=== PATIENT | male | born 1970 | race Hispanic/Latino ===

== ENCOUNTER 2017-09-11 19:15 | Observation (INO) | payer OTHER, MEDICARE ==
[~2017-09-11] VITALS: Ht 182.9 cm; Wt 89.8 kg
[2017-09-11 20:11] LABS: ABSOLUTE BASOPHIL COUNT 0 /CUMM (0.0-0.2); ABSOLUTE EOSINOPHIL COUNT 0.1 /CUMM (0.0-0.7); ABSOLUTE GRANULOCYTE CT 4.8 /CUMM (1.4-6.5); ABSOLUTE LYMPH COUNT 1.8 /CUMM (1.2-3.4); ABSOLUTE MONOCYTE COUNT 0.6 /CUMM (0.10-0.60); BASOPHIL % 0.1 % (0.0-2.0); EOSINOPHIL % 1.9 % (0-5); GRANULOCYTE % 65.1 % (42.2-75.2); HEMATOCRIT 37.8 % (42-52); MEAN CORPUSCULAR HGB CONC 34.6 G/DL (33.0-37.0); MEAN CORPUSCULAR VOLUME 86.8 FL (80.0-94.0); MEAN PLATELET VOLUME 7.4 FL (7.4-10.4); PLATELET COUNT 239 /CUMM (130-400); RBC DISTRIBUTION WIDTH 13.2 % (11.5-14.5); RED BLOOD CELL CT 4.35 /CUMM (4.70-6.10); WHITE BLOOD CELL COUNT 7.3 /CUMM (4.8-10.8)
--- NOTE | 2017-09-11 20:15 | ED GI/GU/ABDOMINAL COMPLAINT ---
History of Present Illness General Chief Complaint: Chest Pain Stated Complaint: R UPPER RIB PAIN RADIATING TO BACK Source: patient, family, old records Exam Limitations: no limitations Vital Signs & Intake/Output Vital Signs & Intake/Output Vital Signs Date Time Temp Pulse Resp B/P B/P Pulse O2 O2 Flow FiO2 Mean Ox Delivery Rate 09/11 2156 99.7 62 20 118/63 96 Room Air 09/11 1945 Room Air 09/11 1938 98.5 97 20 121/77 98 Room Air Allergies Coded Allergies: NSAIDS (Non-Steroidal Anti-Inflamma (Intermediate, SWELLING EYE 09/11/17) ciprofloxacin (From CIPRO) (Intermediate, HIVES 09/11/17) Reconcile Medications Clonazepam 1 MG TABLET 1 TAB PO QPM SLEEP/ANXIETY (Reported) Desvenlafaxine Succinate (Pristiq ER) 100 MG TAB.ER.24H 1 TAB PO QPM MENTAL HEALTH (Reported) Morphine Sulfate (Ms Contin) 15 MG TABLET.ER 1 TAB PO BID PAIN (Reported) Oxycodone HCl 10 MG TABLET 1 TAB PO Q4H PAIN (Reported) Trazodone HCl 100 MG TABLET 1 TAB PO QPM SLEEP (Reported) Triage Note: PT HERE WITH C/O RIGHT SIDE CHEST PAIN UNDER "RIB CAGE". PT REPORTS IT HAPPENED ONCE YESTERDAY AND THEN TODAY ITS BEEN ON AND OFF ALL DAY. PT REPORTS NAUSEA AND DRY HEAVES BUT DENIES VONITING OR SOB. PT ALSO REPORTS NOW HAVING A HEADACHE. Triage Nurses Notes Reviewed? yes Onset: yesterday Duration: day(s):, continues in ED, waxing and waning Timing: recent history Quality/Severity: moderate, sharpness Location: right upper quadrant Radiation: no radiation Activities at Onset: rest Prior Abdominal Problems: none Past Sexual History: Unobtainable at this time Modifying Factors: Worsens With: palpation. Associated Symptoms: abdominal pain, loss of appetite, nausea/vomiting HPI: 1 day prior to admission patient complains of episodic waxing and waning right upper quadrant pain moderate to severe nonradiating associated with nausea. He denies fever chills vomiting diarrhea chest pain cough shortness of breath headache dysuria rash bleeding. Past History Travel History Traveled to [place] past 21 day No Medical History Any Pertinent Medical History? see below for history Psychiatric: anxiety, depression, PTSD CHRONIC PAIN Blood Disorders: NONE Surgical History Surgical History: hernia repair-inguinal Psychosocial History What is your primary language Mauritian Tobacco Use: Current Daily Use Daily Tobacco Use Amount/Type: => 5 Cigarettes daily ETOH Use: denies use Illicit Drug Use: denies illicit drug use Family History Hx Contributory? No Review of Systems Review of Systems Constitutional: Reports: no symptoms. EENTM: Reports: no symptoms. Respiratory: Reports: no symptoms. Cardiovascular: Reports: no symptoms. GI: Reports: see HPI, abdominal pain, nausea. Genitourinary: Reports: no symptoms. Musculoskeletal: Reports: no symptoms. Skin: Reports: no symptoms. Neurological/Psychological: Reports: no symptoms. Hematologic/Endocrine: Reports: no symptoms. Immunologic/Allergic: Reports: no symptoms. All Other Systems: Reviewed and Negative Physical Exam Physical Exam General Appearance: well developed/nourished, alert, awake, anxious, moderate distress, obese Head: atraumatic, normal appearance Eyes: Bilateral: normal appearance, PERRL, EOMI, normal inspection. Ears, Nose, Throat, Mouth: hearing grossly normal, moist mucous membrane Neck: normal inspection, supple, full range of motion, normal alignment Respiratory: normal breath sounds, chest non-tender, no respiratory distress, quiet respiration, lungs clear Cardiovascular: regular rate/rhythm, normal peripheral pulses, norml femoral pulses equa Peripheral Pulses: 4+ carotid (R), 4+ carotid (L) Gastrointestinal: normal bowel sounds, soft, no organomegaly, guarding, tenderness (Positive Yates's) Male Genitals: normal genitalia Back: normal inspection, normal range of motion, no vertebral tenderness Extremities: normal range of motion, no ligament instability Neurologic/Psych: no motor/sensory deficits, awake, alert, oriented x 3, normal gait, normal mood/affect, operator supply II-XII nml as tested Skin: intact, normal color, warm/dry Core Measures ACS in differential dx? No Sepsis Present: No Sepsis Focused Exam Completed? No Progress Differential Diagnosis: appendicitis, biliary colic, gastritis, pancreatitis Plan of Care: Orders Procedure Date/time Status Regular Diet 09/12 B Active Patient Data 09/11 2301 Active OXYGEN SETUP (GEN) 09/11 2209 Active Saline Lock 09/[address] in observation 09/11 2209 Active Vital Signs 09/11 2209 Active Activity/Ambulation 09/11 2209 Active Code Status 09/11 2209 Active BLOOD CULTURE 09/11 2204 Active URINALYSIS 09/11 1953 Complete TROPONIN LEVEL 09/11 1953 Complete LIPASE 09/11 1953 Complete COMPREHENSIVE METABOLIC PANEL 09/11 1953 Complete CBC WITHOUT DIFFERENTIAL 09/11 1953 Complete EKG 09/11 1916 Active Current Medications Sig/Fazal Start time Last Medication Dose Stop Time Status Admin Diphenhydramine HCl 25 MG ONCE ONE 09/11 2314 UNVr (Benadryl) 09/11 231 Laboratory Tests 09/11/17 2005: Urine Color YEL, Urine Clarity CLEAR, Urine pH 6.0, Ur Specific [place] 1.025, Urine Protein NEG, Urine Ketones NEG, Urine Nitrite NEG, Urine Bilirubin NEG, Urine Urobilinogen 1.0, Ur Leukocyte Esterase NEG, Ur Microscopic EXAM NOT REQUIRED, Urine Hemoglobin NEG, Urine Glucose NEG 09/11/171999: Anion Gap 10, Estimated GFR > 60, BUN/Creatinine Ratio 12.0, Glucose 101 H, Calcium 8.9, Total Bilirubin 0.8, AST 126 H, ALT 93 H, Alkaline Phosphatase 109, Troponin I < 0.01, Total Protein 6.7, Albumin 4.0, Globulin 2.7, Albumin/ Globulin Ratio 1.5, Lipase 28, CBC w Diff NO MAN DIFF REQ, RBC 4.35 L, MCV 86.8 , MCH 30.0, MCHC 34.6, RDW 13.2, MPV 7.4, Gran % 65.1, Lymphocytes % 24.1, Monocytes % 8.8, Eosinophils % 1.9, Basophils % 0.1, Absolute Granulocytes 4.8, Absolute Lymphocytes 1.8, Absolute Monocytes 0.6, Absolute Eosinophils 0.1, Absolute Basophils 0 Microbiology 09/11 2249 BLOOD: Blood Culture - RECD 09/11 2229 BLOOD: Blood Culture - RECD Diagnostic Imaging: Viewed by Me: CT Scan. Discussed w/RAD: CT Scan. Radiology Impression: There is some gallbladder wall thickening. There is no opaque gallstone or biliary dilation. Possibilities include cholesterolosis or early cholecystitis. Some correlation necessary Initial ED EKG: normal axis, normal intervals, normal p-waves, normal QRS complex, normal sinus rhythm, no ST T wave changes Rhythm Strip: normal sinus rhythm Departure Departure Disposition: STILL A PATIENT Condition: Stable Clinical Impression Primary Impression: Cholecystitis with cholelithiasis Referrals: Laureano Brooks MD (PCP/Family) Departure Forms: Customer Survey General Discharge Information Admission Note Spoke With: Sharda Walden MD Documentation of Exam: Documentation of any treatments & extenuating circumstances including Concerns Regarding Discharge (functional status, medication knowledge or non-compliance, living conditions, etc.) that warrant an admission rather than observation: IV antibiotics IV analgesia IV fluids medication adjustment surgical evaluation continuing care discharge planning
--- NOTE | 2017-09-11 21:59 | CT SCAN REPORT ---
EXAMINATION: CT ABDOMEN AND PELVIS WITH CONTRAST CLINICAL INFORMATION: Biliary colic. Right upper quadrant tenderness and pain. Intermittent symptoms with nausea COMPARISON: None TECHNIQUE: Multidetector volumetric imaging was performed of the abdomen and pelvis following IV administration of 95 mL of Optiray 320 intravenous contrast. Sagittal and coronal reformatted images were obtained on the technologist's workstation. DLP: 389 mGy-cm FINDINGS: LUNG BASES: There is a moderate hiatal hernia. Motion artifact limits assessment of the lung bases. LIVER, GALLBLADDER, AND BILIARY TREE: No suspicious abnormality of the liver. No intrahepatic biliary dilation. There is some gallbladder wall thickening. The gallbladder is mildly distended. There are some tiny hyperdensities associated with the gallbladder wall. There is no dilation of the common duct. There may be a small diverticulum along the medial aspect of the second portion the duodenum. PANCREAS: No suspicious abnormality. SPLEEN: Normal ADRENAL GLANDS: Within normal limits KIDNEYS AND URETERS: There is no dilation of the urinary collecting system. No suspicious renal mass. No opaque renal calculus. BLADDER: The bladder is nearly empty. No definite abnormality GASTROINTESTINAL TRACT: No localized colonic wall thickening. No CT evidence of appendicitis. No small bowel dilation. There is a moderate hiatal hernia. The stomach contains a moderate amount of retained material. ABDOMINAL WALL: No significant hernia is appreciated. LYMPH NODES: There are no enlarged abdominal or pelvic lymph nodes. There is no free intraperitoneal fluid. VASCULAR: There is no abdominal aortic aneurysm. The portal vein enhances. PELVIC VISCERA: No suspicious abnormality OSSEOUS STRUCTURES: Artifact related to lumbosacral instrumentation. IMPRESSION: There is some gallbladder wall thickening. There is no opaque gallstone or biliary dilation. Possibilities include cholesterolosis or early cholecystitis. Some correlation necessary
[2017-09-11] MEDS ORDERED: OXYCODONE HCL10 M2 PO (23:02)
[2017-09-11] MEDS ORDERED: PRISTIQ ER100 MG PO (23:03)
[2017-09-11] MEDS ORDERED: CLONAZEPAM1 M2 PO (23:03)
[2017-09-11] MEDS ORDERED: MS CONTIN15 M3 PO (23:03)
[2017-09-11] MEDS ORDERED: TRAZODONE HCL100 M1 PO (23:04)
[2017-09-11] MEDS ORDERED: NEXIUM20 M1 PO (23:05)
[2017-09-11] MEDS ORDERED: SEROQUEL50 M1 PO (23:05)
[2017-09-11] MEDS ORDERED: MINIPRESS5 MG PO (23:05)
--- NOTE | 2017-09-11 23:59 | History & Physical ---
Shabana Ryan MD 09/11/17 5026: General Information and HPI MD Statement: I have seen and personally examined VARUN FAY and documented this H&P. The patient is a 47 year old M who presented with a patient stated chief complaint of RUQ tenderness and nausea Source of Information: patient Exam Limitations: no limitations History of Present Illness: This is a 47-year-old male with a past medical history of anxiety, depression, PTSD, chronic pain, left inguinal and hiatal hernias status post repair in summer that comes in for one day history of right upper quadrant tenderness and pain radiating to the back. The patient states that he was standing up talking to somebody yesterday when all of a sudden he had sharp squeezing pain in the right upper quadrant. The patient has continued to be on and off since then with attacks lasting about 20-30 minutes. He states that the worst pain has been 10/10. The patient has never had pain like this before. He has had abdominal surgery back in 2016, has no history of gallstones. The patient also complains of nausea and dry heaving, no vomiting. He also had one bout of chills this morning and complained of a severe headache prior to arrival at the [place] [facility] The patient has had a normal diet recently, no travel, no sick contacts. Pain is worse on eating. He denies any diarrhea or constipation. He also denies any fever, chest pain, shortness of breath, palpitations, dizziness, cough, dysuria. The patient's old PCP is Dr. Hua Toledo at the [facility]. The patient has smoked half a pack of cigarettes for 20 years. He has allergy to NSAIDs and ciprofloxacin. Allergies/Medications Allergies: Coded Allergies: NSAIDS (Non-Steroidal Anti-Inflamma (Intermediate, SWELLING EYE 09/11/17) ciprofloxacin (From CIPRO) (Intermediate, HIVES 09/11/17) Home Med list Clonazepam 1 MG TABLET 1 TAB PO QPM SLEEP/ANXIETY (Reported) Desvenlafaxine Succinate (Pristiq ER) 100 MG TAB.ER.24H 1 TAB PO QPM MENTAL HEALTH (Reported) Esomeprazole Magnesium (Nexium) 20 MG CAPSULE.DR 1 CAP PO QHS GI (Reported) Morphine Sulfate (Ms Contin) 15 MG TABLET.ER 1 TAB PO BID PAIN (Reported) Oxycodone HCl 10 MG TABLET 1 TAB PO Q4H PAIN (Reported) Prazosin HCl (Minipress) 5 MG CAPSULE 1 CAP PO QPM PTSD/NIGHTMARES (Reported) Quetiapine Fumarate (Seroquel) 50 MG TABLET 1 TAB PO QPM MENTAL HEALTH ( Reported) Trazodone HCl 100 MG TABLET 1 TAB PO QPM SLEEP (Reported) Compliance With Home Meds: GOOD Past History Travel History Traveled to [place] past 21 day No Medical History Gastrointestinal: hiatal hernia Musculoskeletal: chronic back pain Psychiatric: anxiety, depression, PTSD CHRONIC PAIN Blood Disorders: NONE Surgical History Surgical History: hernia repair-inguinal Past Family/Social History Family History Relations & Conditions if any Family history was reviewed; no changes noted. Psychosocial History Smoking Status: Current Everyday Smoker ETOH Use: denies use Illicit Drug Use: denies illicit drug use Functional Ability ADLs Independent: dressing, eating, toileting, bathing. Sexual History Past Sexual History Unobtainable at this time Review of Systems Review of Systems Constitutional: Reports: chills, malaise. EENTM: Reports: no symptoms. Cardiovascular: Reports: no symptoms. Respiratory: Reports: no symptoms. GI: Reports: abdominal pain, bloating, nausea. Genitourinary: Reports: no symptoms. Musculoskeletal: Reports: back pain. Skin: Reports: no symptoms. Neurological/Psychological: Reports: no symptoms. Hematologic/Endocrine: Reports: no symptoms. Immunologic/Allergic: Reports: no symptoms. Exam & Diagnostic Data Last 24 Hrs of Vital Signs/I&O Vital Signs Date Time Temp Pulse Resp B/P B/P Pulse O2 O2 Flow FiO2 Mean Ox Delivery Rate 09/12 0023 99.0 50 20 118/78 95 Room Air 09/11 2326 98.9 59 20 114/68 96 Room Air 09/11 2157 99.7 62 20 118/63 96 Room Air 09/11 1946 Room Air 09/11 1939 98.5 97 20 121/77 98 Room Air Intake & Output 09/12 0800 09/12 0000 09/11 1600 Intake Total Output Total Balance Patient 198 lb 196 lb Weight Weight Reported by Patient Measurement Method Physical Exam General Appearance Alert, Oriented X3, Cooperative, No Acute Distress Skin No Rashes, No Breakdown, No Significant Lesion Skin Temp/Moisture Exam: Warm/Dry Sepsis Skin Exam (color): Normal for Ethnicity Cardiovascular Regular Rate, Normal S1, Normal S2, No Murmurs Lungs Clear to Auscultation, Normal Air Movement Abdomen Normal Bowel Sounds, Soft, No Tenderness, No Hepatospenomegaly, No Masses Neurological Normal Speech Extremities No Clubbing, No Cyanosis, No Edema, Normal Pulses, No Tenderness/ Swelling Vascular Normal Pulses, Pulses Symmetrical Sepsis Peripheral Pulse Location: Radial Sepsis Peripheral Pulse Exam: Normal Last 24 Hrs of Labs/Abraham: Laboratory Tests 09/11/172004: Urine Color YEL, Urine Clarity CLEAR, Urine pH 6.0, Ur Specific [place] 1.025, Urine Protein NEG, Urine Ketones NEG, Urine Nitrite NEG, Urine Bilirubin NEG, Urine Urobilinogen 1.0, Ur Leukocyte Esterase NEG, Ur Microscopic EXAM NOT REQUIRED, Urine Hemoglobin NEG, Urine Glucose NEG 09/11/171999: Anion Gap 10, Estimated GFR > 60, BUN/Creatinine Ratio 12.0, Glucose 101 H, Calcium 8.9, Total Bilirubin 0.8, AST 126 H, ALT 93 H, Alkaline Phosphatase 109, Troponin I < 0.01, Total Protein 6.7, Albumin 4.0, Globulin 2.7, Albumin/ Globulin Ratio 1.5, Lipase 28, CBC w Diff NO MAN DIFF REQ, RBC 4.35 L, MCV 86.8 , MCH 30.0, MCHC 34.6, RDW 13.2, MPV 7.4, Gran % 65.1, Lymphocytes % 24.1, Monocytes % 8.8, Eosinophils % 1.9, Basophils % 0.1, Absolute Granulocytes 4.8, Absolute Lymphocytes 1.8, Absolute Monocytes 0.6, Absolute Eosinophils 0.1, Absolute Basophils 0 Microbiology 09/11 2250 BLOOD: Blood Culture - RECD 09/11 2229 BLOOD: Blood Culture - RECD Assessment/Plan Assessment: This is a 47-year-old male with a past medical history of anxiety, depression, PTSD, chronic pain, left inguinal and hiatal hernias status post repair in summer that comes in for one day history of right upper quadrant tenderness and pain radiating to the back. The patient describes the pain as squeezing and comes in 20-30 minute bouts. He denies any recent abnormal foods, travel, sick contacts. He does admit to increasing pain on eating. The patient is on high-dose opiates at home for his lower back pain, MS Contin, oxycodone. In the ED, temperature 98.5, heart rate 97, respiratory rate 20, blood pressure 121/77, 98% oxygen saturation on room air. Labs showed WBC 7.3, hemoglobin 13.1, creatinine 1.0, normal calcium, negative troponin, normal lipase, AST 126, ALP 93. EKG showed sinus rhythm at a rate of 95 with a QTC of 408 CT abdomen and pelvis showed some gallbladder wall thickening, no gallstone or biliary dilation but some tiny hyperdensities associated with the gallbladder wall. In the ED, patient received Benadryl 25 mg IV 1, morphine 4 mg 1, ampicillin 3 g, Zofran, Toradol. Assessment -Right upper quadrant pain/biliary colic possibly secondary to beginning cholecystitis/cholelithiasis with non-opaque gallstones -Chronic pain on high-dose opiates -Past medical history of anxiety and depression on Seroquel, trazodone, clonazepam -Allergy to NSAIDs -Bradycardia: patient found to have bradycardia down to 48 once up on the floors. Question of vasovagal. Plan -Observe patient on the general medical floors -Continue fluids -Follow off antibiotics as patient is afebrile, not tachycardic or 2, normal WBC count. -Nothing by mouth and advance diet in the morning as tolerated -Right upper quadrant ultrasound tomorrow -Pain control, try to lessen dose of opiates as these could be precipitating patient's gallbladder symptoms. *Of note, the patient is allergic to NSAIDs and was given 1 dose of Toradol in the ED with resultant periorbital swelling. Please avoid all NSAIDs in this patient. -Surgical consult for evaluation cholecystectomy has been placed - please confirm as calculation clerk was [place] [facility] - only could leave a message. -Troponin and EKG at 1 AM and with morning labs. -We have asked for frequent updates on heart rate and vitals from nursing with plan to transfer to telemetry for sustained bradycardia. DVT prophylaxis with Alps and Lovenox Nothing by mouth Patient is full code As Ranked By This Provider Problem List: 1. RUQ abdominal pain Core Measures/Misc (12/01) Acute Coronary Syndrome ACS Diagnosis: No Congestive Heart Failure Congestive Heart Failure Diagnosis No Cerebrovascular Accident CVA/TIA Diagnosis: No VTE (View Protocol) VTE Risk Factors Acute Medical Illness No Mechanical VTE Prophylaxis d/t N/A MechProphylax Ordered No VTE Pharm Prophylaxis d/t NA PharmProphylax ordered Sepsis (View protocol) Sepsis Present: No If YES complete Sepsis Event Note If YES complete Sepsis Event Note Haydee Shi 09/12/17 0250: Core Measures/Misc (12/01) Sepsis (View protocol) If YES complete Sepsis Event Note If YES complete Sepsis Event Note Resident Review Statement Resident Statement: discussed with undergraduate intern, agreed with undergraduate intern Other Findings: Patient is 47-year-old male with past medical history of posttraumatic stress disorder, anxiety, depression, came in with a chief complaint of intermittent right upper quadrant pain. Patient states that the pain started suddenly yesterday when he was a standing talking to his friend, its intermittent and pressure-like in nature, 10/10 at worse. Patient reports that the pain radiates to the back. He has never had any gallbladder issues before or any history of kidney stones. However does report that he had right-sided hiatal hernia removed last year. Patient also reports of such objective chills and the right upper quadrant pain gets worse on eating. 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 Labs and vitals as above. Patient had a heart rate of 97 when he came in, around midnight, the heart rate was found to be 50. EKG was noncontributory. CAT scan abdomen pelvis There is some gallbladder wall thickening. There is no opaque gallstone or biliary dilation. Possibilities include cholesterolosis or early cholecystitis. Some correlation necessary Assessment and plan We will monitor the patient on general medicine floor, will start patient on IV fluids, adequate pain management with Dilaudid, surgical consult in a.m. for possible cholecystectomy before discharge, and will get right upper quadrant ultrasound. Patient is made nothing by mouth for now. Will repeat CBC and BMP in a.m. we will recheck LFTs in a.m. Will do serial troponins and EKG, monitor continuously for bradycardia, if patient remains bradycardic will consider transferring to telemetry floor. DVT prophylaxis Alps Patient is full code Iram,Aartee 09/12/17 0411: Core Measures/Misc (12/01) Sepsis (View protocol) If YES complete Sepsis Event Note If YES complete Sepsis Event Note Attending MD Review Statement Attending Statement Attending MD Statement: examined this patient, discuss w/resident/PA/PRINT PRESS OPERATOR, agreed w/resident/PA/PRINT PRESS OPERATOR, reviewed EMR data (avail), reviewed images, amended to note Attending Assessment/Plan: CC: Right sided abdominal pain PMH: Anxiety, depression, PTSD, chronic pain Patient came to ER for right-sided abdominal pain started yesterday, intermittent, 10 over 10 in intensity when severe, lasts 20-30 minutes, squeezing in nature, associated with nausea and dry heaving, worse with eating. He has decreased by mouth intake. He denies any fever, chills, shortness of breath, cough, expectoration, urinary symptoms. He never had similar pain in the past. Vitals: Temperature 98.5, pulse 97, RR 20, blood pressure 121/77, saturating 98% on room air. On exam: A O 3, cooperative, no acute distress, neck supple, JVD normal, no lymphadenopathy, mucosa moist, no focal neurological deficit, no dependent edema , no obvious skin rashes or inflammation CVS: S1-S2, RRR. RS: Clear to auscultate bilaterally. Abdomen: Soft, mild tenderness in right lower quadrant, no tenderness in right upper quadrant, no Yates sign, no CVA tenderness, bowel sounds present. CT abdomen pelvis with IV contrast: There is some gallbladder wall thickening. There is no opaque gallstone or biliary dilation. Possibilities include cholesterolosis or early cholecystitis. Some correlation necessary Assessment and plan 47-year-old male with above-mentioned past medical history came to ER for 1 day history of right-sided abdominal pain. From his description it appears more as a biliary colic but on palpation he has more tenderness and right lower quadrant instead of right upper quadrant, no rebound or guarding, bowel sounds present. CT scan suggests thickening of gallbladder wall, its significance is unclear at this point as patient is not having fever, no Yates sign, no leukocytosis. He has mild transaminitis, patient denies any history of alcohol, we will closely follow this labs, obtain surgical opinion, watch off antibiotics. + Suspected biliary colic + Transaminitis + History of Anxiety, depression, PTSD, chronic pain - Place in observation and Gen. medicine - Nothing by mouth - Gentle hydration - Adequate pain control - Right upper quadrant ultrasound - Serial troponins and ECGs - Trend LFTs in a.m. - No antibiotics - Surgery consult - DVT prophylaxis with Alps only
[2017-09-12 00:23] VITALS: BP 118/78
[2017-09-12 03:23] VITALS: BP 110/60
[2017-09-12 05:01] VITALS: BP 96/56
[2017-09-12 06:20] VITALS: BP 108/60
--- NOTE | 2017-09-12 07:48 | PN- Housestaff ---
Babar [place],Romie 09/12/17 0748: Subjective Follow-up For: possible cholecystitis Subjective: afebrile off antibiotics RUQ pain, tender only to deep palpation transaminitis worsening pain 5/10 currently despite IV dilaudid, worsening to 10+/10 every 30 mins approximately Review of Systems Constitutional: Reports: see HPI. Objective Last 24 Hrs of Vital Signs/I&O Vital Signs Date Time Temp Pulse Resp B/P B/P Pulse O2 O2 Flow FiO2 Mean Ox Delivery Rate 09/12 06 98.1 45 20 108/60 94 Room Air 09/12 0501 54 16 96/56 93 Room Air 09/12 0323 98.5 52 22 110/60 94 Room Air 09/12 0230 48 09/12 0023 99.0 50 20 118/78 95 Room Air 09/11 2326 98.9 59 20 114/68 96 Room Air 09/11 2157 99.7 62 20 118/63 96 Room Air 09/11 1946 Room Air 09/11 1939 98.5 97 20 121/77 98 Room Air Intake & Output 09/12 1600 09/12 0800 09/12 0000 Intake Total 120 Output Total 250 600 Balance -250 -480 Intake, Oral 120 Output, Urine 250 600 Patient 89.811 kg 88.904 kg Weight Weight Reported by Patient Measurement Method Physical Exam General Appearance: Alert, Oriented X3, Cooperative, No Acute Distress Cardiovascular: Regular Rate, Normal S1, Normal S2, No Murmurs Lungs: Clear to Auscultation, Normal Air Movement Abdomen: Normal Bowel Sounds, Soft, No Tenderness, No Masses, reporting RUQ tenderness to deep palpation, no rebound or guarding Extremities: No Clubbing, No Cyanosis, No Edema, Normal Pulses Current Medications: Current Medications Sig/Fazal Start time Last Medication Dose Route Stop Time Status Admin Acetaminophen 325 MG ONCE ONE 09/12 614 DC 09/12 PO 09/12 0516 0608 Ampicillin Sodium/ 0 .STK-MED ONE 09/11 2301 DC Sulbactam Sodium .ROUTE Ampicillin Sodium/ 3,000 MG ONCE ONE 09/11 2215 DC 09/11 Sulbactam Sodium IV 09/11 2244 2310 Sodium Chloride 100 ML Clonazepam 1 MG QPM 09/12 2099 AC PO 09/19 2058 Desvenlafaxine 100 MG AT BEDTIME 09/12 2099 AC Succinate PO Diphenhydramine HCl 25 MG ONCE ONE 09/115 DC 09/11 IV 09/11 2316 2310 Diphenhydramine HCl 0 .STK-MED ONE 09/11 2301 DC .ROUTE Diphenhydramine HCl 25 MG ONCE ONE 09/11 2114 DC 09/11 IV 09/11 Diphenhydramine HCl 0 .STK-MED ONE 09/11 2113 DC .ROUTE Heparin Sodium 5,000 UNIT Q8 09/12 0600 CAN (Porcine) SC Hydromorphone HCl 0.4 MG Q4P PRN 09/12 0200 AC 09/12 IV 0349 Hydromorphone HCl 1 MG Q6P PRN 09/12 0200 AC 09/12 IV 0808 Ketorolac 0 .STK-MED ONE 09/11 2102 DC Tromethamine .ROUTE Ketorolac 30 MG ONCE ONE 09/12 1999 DC 09/11 Tromethamine IV 09/11 Morphine Sulfate 4 MG ONCE ONE 09/11 2214 DC 09/11 IV 09/11 Morphine Sulfate 0 .STK-MED ONE 09/11 2205 DC .ROUTE Omeprazole 20 MG DAILY AC 09/12 0700 AC 09/12 PO 0609 Ondansetron HCl 0 .STK-MED ONE 09/12 2103 DC .ROUTE Ondansetron HCl 4 MG ONCE ONE 09/12 1999 DC 09/11 IV 09/11 Prazosin HCl 5 MG QPM 09/12 2100 AC PO Quetiapine Fumarate 50 MG QPM 09/12 2100 AC PO Sodium Chloride 1,000 ML Q13H 09/12 0200 AC 09/12 IV 09/13 0359 0200 Sodium Chloride 1,000 ML BOLUS ONE 09/12 1999 DC 09/11 IV 09/11 Trazodone HCl 100 MG QPM 09/12 2100 AC PO Last 24 Hrs of Lab/Abraham Results Last 24 Hrs of Labs/Mics: Laboratory Tests 09/12/17 0645: Anion Gap 6, Estimated GFR > 60, BUN/Creatinine Ratio 12.0, Total Bilirubin 1.1, Direct Bilirubin 0.5 H, AST 225 H, ALT 188 H, Alkaline Phosphatase 124, Troponin I < 0.01, Total Protein 5.7 L, Albumin 3.2 L, TSH Pending, Free T4 1.46, CBC w Diff NO MAN DIFF REQ, RBC 4.15 L, MCV 88.1, MCH 30.3, MCHC 34.4, RDW 13.2, MPV 8.4, Gran % 51.8, Lymphocytes % 34.7, Monocytes % 9.8 H, Eosinophils % 3.1, Basophils % 0.6, Absolute Granulocytes 2.8, Absolute Lymphocytes 1.9, Absolute Monocytes 0.5, Absolute Eosinophils 0.2, Absolute Basophils 0 09/12/17 0150: Troponin I < 0.01 09/11/172004: Urine Opiates Screen > 4000.00 H, Methadone Screen 48, Barbiturate Screen < 60, Ur Phencyclidine Scrn < 6.00, Amphetamines Screen < 100, U Benzodiazepines Scrn 334 H, Urine Cocaine Screen < 50, Urine Cannabis Screen < 5.00, Urine Color YEL , Urine Clarity CLEAR, Urine pH 6.0, Ur Specific [place] 1.025, Urine Protein NEG, Urine Ketones NEG, Urine Nitrite NEG, Urine Bilirubin NEG, Urine Urobilinogen 1.0, Ur Leukocyte Esterase NEG, Ur Microscopic EXAM NOT REQUIRED, Urine Hemoglobin NEG, Urine Glucose NEG 09/11/171999: Anion Gap 10, Estimated GFR > 60, BUN/Creatinine Ratio 12.0, Glucose 101 H, Calcium 8.9, Total Bilirubin 0.8, AST 126 H, ALT 93 H, Alkaline Phosphatase 109, Troponin I < 0.01, Total Protein 6.7, Albumin 4.0, Globulin 2.7, Albumin/ Globulin Ratio 1.5, Lipase 28, CBC w Diff NO MAN DIFF REQ, RBC 4.35 L, MCV 86.8 , MCH 30.0, MCHC 34.6, RDW 13.2, MPV 7.4, Gran % 65.1, Lymphocytes % 24.1, Monocytes % 8.8, Eosinophils % 1.9, Basophils % 0.1, Absolute Granulocytes 4.8, Absolute Lymphocytes 1.8, Absolute Monocytes 0.6, Absolute Eosinophils 0.1, Absolute Basophils 0 Microbiology 09/11 2249 BLOOD: Blood Culture - RECD 09/11 2229 BLOOD: Blood Culture - RECD Assessment/Plan Assessment: 47 year old male with PMH of anxiety/depression/PTSD, chronic pain (L5-S1 fusion ), hiatal hernia with diaphragmatic defect repair in 2017 presented with acute onset waxing and waning squeezing right upper quadrant abdominal pain, worse with eating. The patient describes the pain as squeezing and comes in 20-30 minute bouts. He denies any recent abnormal foods, travel, sick contacts. He does admit to increasing pain on eating. The patient is on high-dose opiates at home for his lower back pain, MS Emily, oxycodone. Possible cholecystitis: Receieved Unasyn in the ED Afebrile without leukocytosis currently h/o left inguinal hernia repair, hiatal hernia repair CT abdomen and pelvis showed some gallbladder wall thickening, no gallstone or biliary dilation but some tiny hyperdensities associated with the gallbladder wall. RUQ U/S No shadowing gallstones or significant mural thickening for acute cholecystitis. Afebrile, no leukocytosis NPO, continue IVFs Surgical consultation with Dr. Bosch Allergic to NSAIDs, receieved toradol in the ED with periorbital edema, benadryl overnight Analgesia with oxycodone and ms emily Transaminitis AST 126/ALT 93, transaminitis worsening on AM labs, normal bili/ alk phos Reportedly minimal EtOH Check HIDA GI consultation for worsening transaminitis Check coags, albumin decreased today Bradycardia: EKG sinus bradycardia despite pain Psych: Continue pristiq, seroquel, trazodone, klonopin 1mg po bid Chronic back pain: On 15mg MScontin bid and oxycodone 10mg q6, ct bit tripoler checked NPO DVT ppx-ALPs and lovenox sc Full code Problem List: 1. RUQ abdominal pain Pain Ratin Pain Location: RUQ Pain Goal: Pain 4 or less Pain Plan: dilaudid Tomorrow's Labs & Rationales: cbc, bep, lfts Debra Rivera MD 09/12/17 1216: Attending MD Review Statement Attending Statement Attending MD Statement: examined this patient, discuss w/resident/PA/ONLINE MEDIA BUYER, agreed w/resident/PA/ONLINE MEDIA BUYER, reviewed EMR data (avail), discussed with nursing, discussed with case mgmt, reviewed images Attending Assessment/Plan: 47-year-old male brought in as observation overnight for complaints of abdominal pain. He has underlying anxiety depression and PTSD and is on multiple psychiatric medications and has chronic opiate dependence. He came in with severe right upper quadrant pain. His CT scan showed a thickened gallbladder but no definite cholecystitis and he did not have a fever or white count but mildly elevated transaminases. He remains in pain today and says that it hurts him and he is worried because yesterday when he ate, the pain became worse. He is hungry and wants to eat though. His ultrasound was negative for any thickening of the gallbladder or any signs of cholecystitis however his AST and AST have gone up further. At this point I will continue to keep him nothing by mouth, continue IV fluids, a formal surgical eval has been called in and we are waiting for the surgeon to see him. Given the elevated transaminases I will call GI as well -the question is whether any further imaging is needed or whether we can start feeding him.
[2017-09-12 08:48] LABS: ABSOLUTE BASOPHIL COUNT 0 /CUMM (0.0-0.2); ABSOLUTE EOSINOPHIL COUNT 0.2 /CUMM (0.0-0.7); ABSOLUTE GRANULOCYTE CT 2.8 /CUMM (1.4-6.5); ABSOLUTE LYMPH COUNT 1.9 /CUMM (1.2-3.4); ABSOLUTE MONOCYTE COUNT 0.5 /CUMM (0.10-0.60); BASOPHIL % 0.6 % (0.0-2.0); EOSINOPHIL % 3.1 % (0-5); GRANULOCYTE % 51.8 % (42.2-75.2); HEMATOCRIT 36.5 % (42-52); MEAN CORPUSCULAR HGB 30.3 PG (27.0-31.0); MEAN CORPUSCULAR HGB CONC 34.4 G/DL (33.0-37.0); MEAN CORPUSCULAR VOLUME 88.1 FL (80.0-94.0); MEAN PLATELET VOLUME 8.4 FL (7.4-10.4); PLATELET COUNT 193 /CUMM (130-400); RBC DISTRIBUTION WIDTH 13.2 % (11.5-14.5); RED BLOOD CELL CT 4.15 /CUMM (4.70-6.10); WHITE BLOOD CELL COUNT 5.4 /CUMM (4.8-10.8)
--- NOTE | 2017-09-12 10:15 | ULTRASOUND REPORT ---
EXAMINATION: US ABDOMEN LIMITED CLINICAL INFORMATION: Right upper quadrant abdominal pain. COMPARISON: CT abdomen pelvis 09/11/2017. TECHNIQUE: Real-time imaging of the right upper quadrant abdominal viscera. FINDINGS: PANCREAS: Visualized portions of the pancreas are unremarkable, with partial pancreatic bowel gas obscuration. LIVER: Normal. The liver demonstrates normal size, contour and echogenicity. No focal lesion or intrahepatic biliary duct dilatation. GALLBLADDER: Top normal gallbladder wall thickness at 0.3 cm. No intramural edema. No pericholecystic fluid. No shadowing gallstones. The sonographic technologist reports tenderness in the area of the gallbladder upon sonography. COMMON BILE DUCT: Normal in caliber measuring 0.5 cm in diameter. RIGHT KIDNEY: Normal. No hydronephrosis. No renal calculi or focal parenchymal lesions. The kidney measures 9.5 cm in maximum dimension. FREE FLUID: None. IMPRESSION: Nonspecific examination. The right upper quadrant tenderness upon sonography of the gallbladder is of unclear etiology. No shadowing gallstones or significant mural thickening to diagnose acute cholecystitis. If clinically warranted, consider hepatobiliary nuclear scintigraphy.
[2017-09-12] MEDS ORDERED: OXYCODONE HCL10 M2 PO (13:29)
[2017-09-12] MEDS ORDERED: CLONAZEPAM1 M2 PO (13:29)
[2017-09-12 14:29] LABS: PT 12.4 SEC (9.4-12.5); PTT 34 SEC (25-37)
--- NOTE | 2017-09-12 14:33 | Patient Discharge Instructions ---
Discharge Instructions General Discharge Information You were seen/treated for: RUQ pain Mildly elevated liver function test Bradycardia (slow heart rate) You had these procedures: Ultrasound of Liver and Gallbladder HIDA scan Special Instructions: 1. Follow up with the GI doctor (Dr. Larios) and Surgeon (Dr. Bosch) 2. Follow up with your pcp within 1 week of discharge. 3. Please get repeat blood work on 09/18 (LFTs) 4. Please follow up with the fence supervisor outpatient. Acute Coronary Syndrome Inclusion Criteria At DC or during hospital stay patient has or had the following: ACS DIAGNOSIS No Discharge Core Measures Meds if any: Prescribed or Continued at Discharge Meds if any: NOT Prescribed or Continued at Discharge Congestive Heart Failure Inclusion Criteria At DC or during hospital stay patient has or had the following: CHF DIAGNOSIS No Discharge Core Measures Meds if any: Prescribed or Continued at Discharge Meds if any: NOT Prescribed or Continued at Discharge Cerebrovascular accident Inclusion Criteria At DC or during hospital stay patient has or had the following: CVA/TIA Diagnosis No Discharge Core Measures Meds if any: Prescribed or Continued at Discharge Meds if any: NOT Prescribed or Continued at Discharge Venous thromboembolism Inclusion Criteria VTE Diagnosis No VTE Type NONE VTE Confirmed by (Test) NONE Discharge Core Measures - Per Current guidelines, there needs to be overlap - treatment for the first 5 days of Warfarin therapy. - If discharged on Warfarin prior to 5 days of - overlap therapy, the patient will need to be - assessed for post discharge needs including - *Post discharge parental anticoagulation - *Warfarin and/or parental anticoagulation education - *Follow up date to check INR post discharge At least 5 days overlap therapy as Inpatient No Meds if any: Prescribed or Continued at Discharge Note: Overlap Therapy is Warfarin and Anticoagulant Meds if any: NOT Prescribed or Continued at Discharge
--- NOTE | 2017-09-12 15:21 | Cons- Gastroenterology ---
General Information and HPI Consulting Request Date of Consult: 09/12/17 Requested By: Debra Rivera MD Reason for Consult: Right upper quadrant pain Source of Information: patient, electronic medical record Exam Limitations: no limitations History of Present Illness: Mr. Kee is a 47-year-old male with a past medical history of anxiety, depression, PTSD, and chronic pain who presents with a one day history of right upper quadrant pain radiating to the back. Patient reports that the pains are gradual in onset last 20-30 minutes and resolved gradually. However, they recurred frequently during the day and were 10/10 at their worst. They are associated with nausea and dry heaving but no vomiting. He had one episode where he had chills but did not take his temperature. He has had a left inguinal herniorrhaphy in 2017. He has never had pain like this before. A CT Scan was obtained on admission, the impression is as follows: IMPRESSION: There is some gallbladder wall thickening. There is no opaque gallstone or biliary dilation. Possibilities include cholesterolosis or early cholecystitis. Some correlation necessary An Ultrasound was obtained in follow up, the results are as follows: IMPRESSION: Nonspecific examination. The right upper quadrant tenderness upon sonography of the gallbladder is of unclear etiology. No shadowing gallstones or significant mural thickening to diagnose acute cholecystitis. If clinically warranted, consider hepatobiliary nuclear scintigraphy. Allergies/Medications Allergies: Coded Allergies: NSAIDS (Non-Steroidal Anti-Inflamma (Intermediate, SWELLING EYE 09/11/17) ciprofloxacin (From CIPRO) (Intermediate, HIVES 09/11/17) Home Med List: Clonazepam 1 MG TABLET 1 TAB PO BID anxiety (Reported) Desvenlafaxine Succinate (Pristiq ER) 100 MG TAB.ER.24H 1 TAB PO QPM MENTAL HEALTH (Reported) Esomeprazole Magnesium (Nexium) 20 MG CAPSULE.DR 1 CAP PO QHS GI (Reported) Morphine Sulfate (Ms Contin) 15 MG TABLET.ER 1 TAB PO BID PAIN (Reported) Oxycodone HCl 10 MG TABLET 1 TAB PO Q6H PRN PAIN (Reported) Prazosin HCl (Minipress) 5 MG CAPSULE 1 CAP PO QPM PTSD/NIGHTMARES (Reported) Quetiapine Fumarate (Seroquel) 50 MG TABLET 1 TAB PO QPM MENTAL HEALTH ( Reported) Trazodone HCl 100 MG TABLET 1 TAB PO QPM SLEEP (Reported) Current Medications: Current Medications Sig/Fazal Start time Last Medication Dose Route Stop Time Status Admin Acetaminophen 325 MG ONCE ONE 09/12 0615 DC 09/12 PO 09/12 0616 0608 Ampicillin Sodium/ 0 .STK-MED ONE 09/11 2301 DC Sulbactam Sodium .ROUTE Ampicillin Sodium/ 3,000 MG ONCE ONE 09/11 2215 DC 09/11 Sulbactam Sodium IV 09/11 2244 2310 Sodium Chloride 100 ML Clonazepam 1 MG QPM 09/12 2100 AC PO 09/19 2058 Clonazepam 1 MG BID 09/12 2100 AC PO 09/19 2058 Desvenlafaxine 100 MG AT BEDTIME 09/12 2100 AC Succinate PO Diphenhydramine HCl 25 MG ONCE ONE 09/11 2315 DC 09/11 IV 09/11 2316 2310 Diphenhydramine HCl 0 .STK-MED ONE 09/11 2301 DC .ROUTE Diphenhydramine HCl 25 MG ONCE ONE 09/11 2114 DC 09/11 IV 09/12 2115 211 Diphenhydramine HCl 0 .STK-MED ONE 09/11 211 DC .ROUTE Heparin Sodium 5,000 UNIT Q8 09/12 0600 CAN (Porcine) SC Hydromorphone HCl 0.4 MG Q4P PRN 09/12 0200 DC 09/12 IV 0349 Hydromorphone HCl 1 MG Q6P PRN 09/12 0200 DC 09/12 IV 0808 Ketorolac 0 .STK-MED ONE 09/113 DC Tromethamine .ROUTE Ketorolac 30 MG ONCE ONE 09/12 1999 DC 09/11 Tromethamine IV 09/11 Morphine Sulfate 15 MG BID 09/12 2100 AC PO Morphine Sulfate 4 MG ONCE ONE 09/11 2215 DC 09/11 IV 09/11 221 2208 Morphine Sulfate 0 .STK-MED ONE 09/11 2205 DC .ROUTE Omeprazole 20 MG DAILY AC 09/12 0700 AC 09/12 PO 0609 Ondansetron HCl 0 .STK-MED ONE 09/12 2103 DC .ROUTE Ondansetron HCl 4 MG ONCE ONE 09/12 1999 DC 09/11 IV 09/11 Oxycodone HCl 10 MG Q6 PRN 09/12 1330 AC PO Patient Medication 1 ED ONE ONE 09/12 1345 DC 09/12 Teaching ED 09/12 1346 1430 Prazosin HCl 5 MG QPM 09/12 2100 AC PO Quetiapine Fumarate 50 MG QPM 09/12 2100 AC PO Sodium Chloride 1,000 ML Q13H 09/12 0200 AC 09/12 IV 09/13 0359 1537 Sodium Chloride 1,000 ML BOLUS ONE 09/12 1999 DC 09/11 IV 09/11 Trazodone HCl 100 MG QPM 09/12 2100 AC PO Past History Travel History Traveled to [place] past 21 day No Medical History Blood Transfusion Hx: No Type of Reaction: Swelling Neurological: NONE EENT: NONE Cardiovascular: NONE Respiratory: ASTHMA? Gastrointestinal: hiatal hernia Hepatic: NONE Renal: NONE Musculoskeletal: chronic back pain Psychiatric: anxiety, depression, PTSD CHRONIC PAIN Endocrine: NONE Blood Disorders: NONE Cancer(s): NONE SPINDLE FRAME CARVER/Reproductive: NONE Surgical History Surgical History: hernia repair-inguinal Psychosocial History Smoking Status: Current Everyday Smoker ETOH Use: denies use Illicit Drug Use: denies illicit drug use Functional Ability ADLs Independent: dressing, eating, toileting, bathing. Review of Systems Review of Systems Constitutional: Reports: chills. Denies: malaise, unexplained weight loss. EENTM: Reports: no symptoms. Cardiovascular: Reports: no symptoms. Respiratory: Reports: no symptoms. GI: Reports: see HPI. Genitourinary: Reports: no symptoms. Musculoskeletal: Reports: no symptoms. Skin: Reports: no symptoms. Neurological/Psychological: Reports: anxiety. Hematologic/Endocrine: Reports: no symptoms. Exam & Diagnostic Data Vital Signs and I&O Vital Signs Date Time Temp Pulse Resp B/P B/P Pulse O2 O2 Flow FiO2 Mean Ox Delivery Rate 09/12 06 98.1 45 20 108/60 94 Room Air 09/12 0501 54 16 96/56 93 Room Air 09/12 0323 98.5 52 22 110/60 94 Room Air 09/12 0230 48 09/12 0023 99.0 50 20 118/78 95 Room Air 09/11 2326 98.9 59 20 114/68 96 Room Air 09/11 2157 99.7 62 20 118/63 96 Room Air 09/11 1946 Room Air 09/11 1939 98.5 97 20 121/77 98 Room Air Intake & Output 0609/120 09/11 0400 Intake Total 120 Output Total 850 Balance -730 Intake, Oral 120 Output, Urine 850 Patient 198 lb Weight Weight Reported by Patient Measurement Method Physical Exam General Appearance: well developed/nourished Head: atraumatic, normal appearance Eyes: Bilateral: normal appearance. Ears, Nose, Throat: hearing grossly normal Neck: normal inspection, supple, full range of motion Respiratory: normal breath sounds, lungs clear Cardiovascular: regular rate/rhythm, Normal S1 and S2 without rub, murmur or gallop Gastrointestinal: normal bowel sounds, soft, non-tender Back: normal inspection Extremities: normal inspection, no edema Neurologic/Psych: awake, alert, oriented x 3, normal mood/affect Cranial Nerves: Cranial Nerves II-XI grossly intact Skin: intact, normal color Results Pertinent Lab Results: Laboratory Tests 09/12 09/12 09/12 1240 0645 0150 Chemistry Sodium (137 - 145 mmol/L) 140 Potassium (3.5 - 5.1 mmol/L) 4.2 Chloride (98 - 107 mmol/L) 104 Carbon Dioxide (22 - 30 mmol/L) 30 Anion Gap (5 - 16) 6 BUN (9 - 20 mg/dL) 12 Creatinine (0.7 - 1.2 mg/dL) 1.0 Estimated GFR (>60 ml/min) > 60 BUN/Creatinine Ratio (7 - 25 %) 12.0 Total Bilirubin (0.2 - 1.3 mg/dL) 1.1 Direct Bilirubin (< 0.4 mg/dL) 0.5 H AST (17 - 59 U/L) 225 H ALT (21 - 72 U/L) 188 H Alkaline Phosphatase (< 127 U/L) 124 Creatine Kinase (55 - 170 U/L) 79 Troponin I (<0.11 ng/ml) < 0.01 < 0.01 Total Protein (6.3 - 8.2 g/dL) 5.7 L Albumin (3.5 - 5.0 g/dL) 3.2 L TSH (0.270 - 4.200 uIU/mL) 1.290 Free T4 (0.64 - 1.79 ng/dL) 1.46 Coagulation PT (9.4 - 12.5 SEC) 12.4 INR (0.90 - 1.17) 1.14 APTT (25 - 37 SEC) 34 Hematology CBC w Diff NO MAN DIFF REQ WBC (4.8 - 10.8 /CUMM) 5.4 RBC (4.70 - 6.10 /CUMM) 4.15 L Hgb (14.0 - 18.0 G/DL) 12.6 L Hct (42 - 52 %) 36.5 L MCV (80.0 - 94.0 FL) 88.1 MCH (27.0 - 31.0 PG) 30.3 MCHC (33.0 - 37.0 G/DL) 34.4 RDW (11.5 - 14.5 %) 13.2 Plt Count (130 - 400 /CUMM) 193 MPV (7.4 - 10.4 FL) 8.4 Gran % (42.2 - 75.2 %) 51.8 Lymphocytes % (20.5 - 51.1 %) 34.7 Monocytes % (1.7 - 9.3 %) 9.8 H Eosinophils % (0 - 5 %) 3.1 Basophils % (0.0 - 2.0 %) 0.6 Absolute Granulocytes (1.4 - 6.5 /CUMM) 2.8 Absolute Lymphocytes (1.2 - 3.4 /CUMM) 1.9 Absolute Monocytes (0.10 - 0.60 /CUMM) 0.5 Absolute Eosinophils (0.0 - 0.7 /CUMM) 0.2 Absolute Basophils (0.0 - 0.2 /CUMM) 0 09/11 Chemistry Sodium (137 - 145 mmol/L) 139 Potassium (3.5 - 5.1 mmol/L) 3.8 Chloride (98 - 107 mmol/L) 99 Carbon Dioxide (22 - 30 mmol/L) 30 Anion Gap (5 - 16) 10 BUN (9 - 20 mg/dL) 12 Creatinine (0.7 - 1.2 mg/dL) 1.0 Estimated GFR (>60 ml/min) > 60 BUN/Creatinine Ratio (7 - 25 %) 12.0 Glucose (65 - 99 mg/dL) 101 H Calcium (8.4 - 10.2 mg/dL) 8.9 Total Bilirubin (0.2 - 1.3 mg/dL) 0.8 AST (17 - 59 U/L) 126 H ALT (21 - 72 U/L) 93 H Alkaline Phosphatase (< 127 U/L) 109 Troponin I (<0.11 ng/ml) < 0.01 Total Protein (6.3 - 8.2 g/dL) 6.7 Albumin (3.5 - 5.0 g/dL) 4.0 Globulin (1.9 - 4.2 gm/dL) 2.7 Albumin/Globulin Ratio (1.1 - 2.2 %) 1.5 Lipase (23 - 300 U/L) 28 Hematology CBC w Diff NO MAN DIFF REQ WBC (4.8 - 10.8 /CUMM) 7.3 RBC (4.70 - 6.10 /CUMM) 4.35 L Hgb (14.0 - 18.0 G/DL) 13.1 L Hct (42 - 52 %) 37.8 L MCV (80.0 - 94.0 FL) 86.8 MCH (27.0 - 31.0 PG) 30.0 MCHC (33.0 - 37.0 G/DL) 34.6 RDW (11.5 - 14.5 %) 13.2 Plt Count (130 - 400 /CUMM) 239 MPV (7.4 - 10.4 FL) 7.4 Gran % (42.2 - 75.2 %) 65.1 Lymphocytes % (20.5 - 51.1 %) 24.1 Monocytes % (1.7 - 9.3 %) 8.8 Eosinophils % (0 - 5 %) 1.9 Basophils % (0.0 - 2.0 %) 0.1 Absolute Granulocytes (1.4 - 6.5 /CUMM) 4.8 Absolute Lymphocytes (1.2 - 3.4 /CUMM) 1.8 Absolute Monocytes (0.10 - 0.60 /CUMM) 0.6 Absolute Eosinophils (0.0 - 0.7 /CUMM) 0.1 Absolute Basophils (0.0 - 0.2 /CUMM) 0 Toxicology Urine Opiates Screen (>2000 NG/ML) > 4000.00 H Methadone Screen (>300 NG/ML) 48 Barbiturate Screen (>200 NG/ML) < 60 Ur Phencyclidine Scrn (>25 NG/ML) < 6.00 Amphetamines Screen (>1000 NG/ML) < 100 U Benzodiazepines Scrn (>200 NG/ML) 334 H Urine Cocaine Screen (>300 NG/ML) < 50 Urine Cannabis Screen (>50 NG/ML) < 5.00 Urines Urine Color (YEL,AMB,STR) YEL Urine Clarity (CLEAR) CLEAR Urine pH (5.0 - 8.0) 6.0 Ur Specific [place] (1.001 - 1.035) 1.025 Urine Protein (NEG,<30 MG/DL) NEG Urine Ketones (NEG) NEG Urine Nitrite (NEG) NEG Urine Bilirubin (NEG) NEG Urine Urobilinogen (0.1 - 1.0 EU/dl) 1.0 Ur Leukocyte Esterase (NEG) NEG Ur Microscopic EXAM NOT REQUIRED Urine Hemoglobin (NEG) NEG Urine Glucose (N MG/DL) NEG Assessment/Plan Assessment/Recommendations: IMPRESSION: 1. RUQ Pain -- with negative US and pain that is suggestive of biliary colic, patient may have biliary dyskinesia 2. Abnormal Transaminases RECOMMENDATIONS: 1. HIDA Scan with CCK 2. Surgical consultation given right upper quadrant tenderness minimal thickening of gallbladder wall as well as probable cholesterolosis of gallbladder wall. If patient with positive HIDA would recommend cholecystectomy. In general those with biliary dyskinesia as well as cholesterolosis generally have a good response to cholecystectomy. Addendum: Patient has had non-visualization of the gallbladder at 90 minutes. Patient will be brought back to carry study out to 4 hours. This result is suggestive of an obstructive process. If study when carried to 4 hours (per radiology protocol) is negative for acute cholecystitis, would have patient do outpatient HIDA with CCK. Nuclear medicine will not do CCK during this study. Patient given my card for outpatient follow up if needed. Consult Acknowledgment - Thank you for your consult request.
--- NOTE | 2017-09-12 17:47 | NUCLEAR MEDICINE REPORT ---
EXAMINATION: EXAMINATION: BILIARY TRACT IMAGING STUDY CLINICAL INFORMATION: Abdominal pain, right upper quadrant pain.. COMPARISON: No previous biliary scan is available for comparison. Abdominal ultrasound dated 09/12/2017, the same date as this biliary scan, is available for comparison. The diagnostic CT scan of the abdomen and pelvis, dated 09/11/2017, is available for comparison.. TECHNIQUE: Serial gamma scintillation camera images were obtained over the abdomen for a total observation period of 4 hours following the intravenous administration of 5.4 mCi Tc-99m Choletec. FINDINGS: There is good concentration of activity in the liver by 5 minutes post injection. Biliary activity is visualized by 15 minutes. Small bowel is well visualized by 15 minutes. The gallbladder is nonvisualized and any time during the study up to 4 hours post injection. There is prolonged retention of activity in the liver at 90 minutes, and prolonged retention is noted in the liver at 4 hours. IMPRESSION: Nonvisualization the gallbladder is evidence of an obstructed cystic duct and strong evidence to suggest the diagnosis of acute cholecystitis. This can also be seen in chronic cholecystitis. The common bile duct is patent. Prolonged retention in the liver is nonspecific but most likely due to diffuse hepatocellular disease.
--- NOTE | 2017-09-12 20:10 | Cons- General Surgery ---
General Information and HPI Consulting Request Date of Consult: 09/12/17 Requested By: Miguel CLEVELAND,Debra Alfredo History of Present Illness: CC: abdominal pain HPI: 47-year-old otherwise healthy nondiabetic no heart disease no vascular disease smoker, on MS Contin and Percocet for chronic lower back pain radiating to both legs, came to the ER last night with first time persistent worsening right upper quadrant nonradiating abdominal pain that started a day earlier not after a meal, denies diarrhea or fevers but noted today his urine is orange-colored. A day prior to the onset of pain he had sushi. 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 His bowel movements have been normal including today. Denies any recent flulike symptoms preceding this. His mother had her gallbladder removed I've reviewed the PFSH. No history of PUD, bleeding problems or issues with anesthesia. Surgical history includes laparoscopic repairs of inguinal and hiatal hernias, knee replacement, family history negative for diabetes or cancer. Allergies/Medications Allergies: Coded Allergies: NSAIDS (Non-Steroidal Anti-Inflamma (Intermediate, SWELLING EYE 09/11/17) ciprofloxacin (From CIPRO) (Intermediate, HIVES 09/11/17) Home Med List: Clonazepam 1 MG TABLET 1 TAB PO BID anxiety (Reported) Desvenlafaxine Succinate (Pristiq ER) 100 MG TAB.ER.24H 1 TAB PO QPM MENTAL HEALTH (Reported) Esomeprazole Magnesium (Nexium) 20 MG CAPSULE.DR 1 CAP PO QHS GI (Reported) Morphine Sulfate (Ms Contin) 15 MG TABLET.ER 1 TAB PO BID PAIN (Reported) Oxycodone HCl 10 MG TABLET 1 TAB PO Q6H PRN PAIN (Reported) Prazosin HCl (Minipress) 5 MG CAPSULE 1 CAP PO QPM PTSD/NIGHTMARES (Reported) Quetiapine Fumarate (Seroquel) 50 MG TABLET 1 TAB PO QPM MENTAL HEALTH ( Reported) Trazodone HCl 100 MG TABLET 1 TAB PO QPM SLEEP (Reported) Current Medications: I reviewed Current Medications Sig/Fazal Start time Last Medication Dose Route Stop Time Status Admin Acetaminophen 325 MG ONCE ONE 09/12 614 DC 09/12 PO 09/13 615 06 Ampicillin Sodium/ 0 .STK-MED ONE 09/11 2301 DC Sulbactam Sodium .ROUTE Ampicillin Sodium/ 3,000 MG ONCE ONE 09/11 2215 DC 09/11 Sulbactam Sodium IV 09/11 2244 2310 Sodium Chloride 100 ML Clonazepam 1 MG QPM 09/12 2100 AC PO 09/19 2058 Clonazepam 1 MG BID 09/12 2100 AC PO 09/19 2058 Desvenlafaxine 100 MG AT BEDTIME 09/12 2100 AC Succinate PO Diphenhydramine HCl 25 MG ONCE ONE 09/11 2315 DC 09/11 IV 09/11 2316 2310 Diphenhydramine HCl 0 .STK-MED ONE 09/11 2301 DC .ROUTE Diphenhydramine HCl 25 MG ONCE ONE 09/11 2114 DC 09/11 IV 09/11 Diphenhydramine HCl 0 .STK-MED ONE 09/11 2113 DC .ROUTE Heparin Sodium 5,000 UNIT Q8 09/12 0600 CAN (Porcine) SC Hydromorphone HCl 0.4 MG Q4P PRN 09/12 0200 DC 09/12 IV 0349 Hydromorphone HCl 1 MG Q6P PRN 09/12 0200 DC 09/12 IV 0808 Ketorolac 0 .STK-MED ONE 09/11 2102 DC Tromethamine .ROUTE Morphine Sulfate 15 MG BID 09/12 2100 AC PO Morphine Sulfate 1 MG ONCE ONE 09/12 1800 DC 09/12 IV 09/12 1801 1838 Morphine Sulfate 4 MG ONCE ONE 09/11 221 DC 09/11 IV 09/12 2215 220 Morphine Sulfate 0 .STK-MED ONE 09/11 2205 DC .ROUTE Omeprazole 20 MG DAILY AC 09/12 0700 AC 09/12 PO 0609 Ondansetron HCl 0 .STK-MED ONE 09/12 2103 DC .ROUTE Oxycodone HCl 10 MG Q6 PRN 09/12 1330 AC PO Patient Medication 1 ED ONE ONE 09/12 1345 DC 09/12 Teaching ED 09/12 1346 1430 Prazosin HCl 5 MG QPM 09/12 2100 AC PO Quetiapine Fumarate 50 MG QPM 09/12 2100 AC PO Sodium Chloride 1,000 ML Q13H 09/12 0200 AC 09/12 IV 09/13 0359 1537 Sodium Chloride 1,000 ML BOLUS ONE 09/11 2000 DC 09/11 IV 09/11 Trazodone HCl 100 MG QPM 09/12 2100 AC PO Past History Medical History Blood Transfusion Hx: No Type of Reaction: Swelling Neurological: NONE EENT: NONE Cardiovascular: NONE Respiratory: ASTHMA? Gastrointestinal: hiatal hernia Hepatic: NONE Renal: NONE Musculoskeletal: chronic back pain Psychiatric: anxiety, depression, PTSD CHRONIC PAIN Endocrine: NONE Blood Disorders: NONE Cancer(s): NONE MEDICAL INFORMATION SPECIALIST/Reproductive: NONE Surgical History Pertinent Surgical History: hernia repair-inguinal Psychosocial History Smoking Status: Current Everyday Smoker ETOH Use: denies use Illicit Drug Use: denies illicit drug use Functional Ability ADLs Independent: dressing, eating, toileting, bathing. Review of Systems Review of Systems: Constitutional: No fever, sweats or weight loss ENMT: No sore throat Cardiovascular: No chest pain, palpitations or leg swelling Respiratory: No shortness of breath, cough, or sputum or dyspnea on exertion GI: No GERD or bleeding per rectum : No dysuria or hematuria Musculoskeletal: No new muscle weakness, bone or joint pain Skin / Breast: No jaundice, rashes or itching Psychiatric: No history of drug or alcohol abuse no depression or anxiety Hematologic / lymphatic system: No problems with excessive bleeding, bruising, or blood clots Exam & Diagnostic Data Vital Signs and I&O I reviewed Vital Signs Date Time Temp Pulse Resp B/P B/P Pulse O2 O2 Flow FiO2 Mean Ox Delivery Rate 09/12 1525 99.0 43 20 97 09/12 0620 98.1 45 20 108/60 94 Room Air 09/12 0501 54 16 96/56 93 Room Air 09/12 0323 98.5 52 22 110/60 94 Room Air 09/12 0230 48 09/12 0023 99.0 50 20 118/78 95 Room Air 09/11 2326 98.9 59 20 114/68 96 Room Air 09/11 2157 99.7 62 20 118/63 96 Room Air I reviewed Intake & Output 09/12 1600 09/12 0809/12 0000 09/11 1600 09/11 0000 Intake Total 637.5 120 Output Total 250 600 Balance 387.5 -480 Intake, IV 637.5 Intake, Oral 0 120 Output, Urine 250 600 Patient 198 lb 196 lb Weight Weight Reported by Patient Measurement Method Physical Exam: Constitutional: pleasant, no acute distress, conversant Eyes: sclera anicteric ENMT: ears and nose atraumatic, moist mucous membranes, good dentition, no lip lesions Neck: Supple, trachea is midline, no cervical or supraclavicular adenopathy and no palpable thyromegaly Cardiovascular: S1, S2, no murmurs, no peripheral edema Respiratory: clear to auscultation with normal respiratory effort and no intercostal retractions GI: abdomen soft, very mild right upper quadrant subcostal tenderness focal, nondistended, no palpable hepatosplenomegaly Extremities / lymphatics: symmetrically warm, free range of motion no peripheral edema, no cervical, supraclavicular, axillary, or inguinal adenopathy Musculoskeletal: Did not evaluate gait and station, no digital cyanosis, good muscle strength and tone no atrophy, motor grossly 5 out of 5 throughout Skin: no jaundice, no rashes warm, nondiaphoretic, no areas of erythema or induration Psychiatric: mood and affect are appropriate and alert and oriented to person place and time Last 24 Hours of Labs: I reviewed Laboratory Tests 09/12 09/12 09/12 1240 0645 0150 Chemistry Sodium (137 - 145 mmol/L) 140 Potassium (3.5 - 5.1 mmol/L) 4.2 Chloride (98 - 107 mmol/L) 104 Carbon Dioxide (22 - 30 mmol/L) 30 Anion Gap (5 - 16) 6 BUN (9 - 20 mg/dL) 12 Creatinine (0.7 - 1.2 mg/dL) 1.0 Estimated GFR (>60 ml/min) > 60 BUN/Creatinine Ratio (7 - 25 %) 12.0 Total Bilirubin (0.2 - 1.3 mg/dL) 1.1 Direct Bilirubin (< 0.4 mg/dL) 0.5 H AST (17 - 59 U/L) 225 H ALT (21 - 72 U/L) 188 H Alkaline Phosphatase (< 127 U/L) 124 Creatine Kinase (55 - 170 U/L) 79 Troponin I (<0.11 ng/ml) < 0.01 < 0.01 Total Protein (6.3 - 8.2 g/dL) 5.7 L Albumin (3.5 - 5.0 g/dL) 3.2 L TSH (0.270 - 4.200 uIU/mL) 1.290 Free T4 (0.64 - 1.79 ng/dL) 1.46 Coagulation PT (9.4 - 12.5 SEC) 12.4 INR (0.90 - 1.17) 1.14 APTT (25 - 37 SEC) 34 Hematology CBC w Diff NO MAN DIFF REQ WBC (4.8 - 10.8 /CUMM) 5.4 RBC (4.70 - 6.10 /CUMM) 4.15 L Hgb (14.0 - 18.0 G/DL) 12.6 L Hct (42 - 52 %) 36.5 L MCV (80.0 - 94.0 FL) 88.1 MCH (27.0 - 31.0 PG) 30.3 MCHC (33.0 - 37.0 G/DL) 34.4 RDW (11.5 - 14.5 %) 13.2 Plt Count (130 - 400 /CUMM) 193 MPV (7.4 - 10.4 FL) 8.4 Gran % (42.2 - 75.2 %) 51.8 Lymphocytes % (20.5 - 51.1 %) 34.7 Monocytes % (1.7 - 9.3 %) 9.8 H Eosinophils % (0 - 5 %) 3.1 Basophils % (0.0 - 2.0 %) 0.6 Absolute Granulocytes (1.4 - 6.5 /CUMM) 2.8 Absolute Lymphocytes (1.2 - 3.4 /CUMM) 1.9 Absolute Monocytes (0.10 - 0.60 /CUMM) 0.5 Absolute Eosinophils (0.0 - 0.7 /CUMM) 0.2 Absolute Basophils (0.0 - 0.2 /CUMM) 0 Assessment/Plan Assessment/Plan I reviewed on PACS myself a HIDA scan the CT scan of his abdomen and the ultrasound There are no gallstones no wall thickening or pericholecystic fluid the CT was read as possibly some mild wall thickening but it's not that impressive than the ultrasound is more sensitive for this. The HIDA scan showed nonvisualization of the gallbladder but also retention of the dye in the liver even after 4 hours Impression is patient with right upper quadrant pain, which is where the gallbladder is (and liver) but otherwise many conflicting features. First there are no gallstones so that cannot explain rising liver function tests from choledocholithiasis, and there is no stone to obstruct the cystic duct as suggested on the HIDA scan. There is no leukocytosis even on interval, that is usually associated with acute cholecystitis, especially with a positive HIDA and this degree of pain. There are several reasons for the HIDA scan to be falsely positive #1 is chronic narcotics #2 he hasn't eaten in at least over 12 hours, and #3 liver function tests are worsening. Also he doesn't have obvious signs of severe acalculous cholecystitis with a thickened wall that would be causing local pressure on the liver to explain the elevation in liver function tests, perhaps the sushi? He is very hungry so please feed him regular diet and must repeat labs including liver function tests in the morning. The trend is important in differentiating this from a primary liver problem to an unusual presentation of a gallbladder problem that would then need laparoscopic cholecystectomy. Problem List: 1. RUQ abdominal pain 2. Elevated liver function tests Consult Acknowledgment - Thank you for your consult request.
[2017-09-12 22:04] VITALS: BP 120/80
[2017-09-13 06:23] VITALS: BP 112/72
--- NOTE | 2017-09-13 08:30 | PN- Att Addend ---
Attending Addendum Attending Brief Note Patient seen and examined. He is eating his breakfast of eggs and toast. He says overall he feels okay, he tolerated his dinner but he continues to complain of this abdominal discomfort and pain and he required 1 dose of 1 mg of IV morphine. On exam he is afebrile at 97.6, pulse rate is 46, breathing at 16-18 and blood pressure is 112/72. He is awake alert and oriented, no icterus, lungs are clear to auscultation, heart is S1-S2 regular, abdomen he has mild right upper quadrant tenderness without any Yates's and no rebound or guarding. No stigmata of chronic liver disease on physical exam, no clubbing cyanosis or edema neurologically he is intact without any asterixis. Labs are pending. He is a 47-year-old with multiple psychiatric issues including anxiety depression and PTSD on multiple psych meds, chronic opiate dependence with MS Contin and oxycodone for chronic back pain. He was admitted with abdominal pain and initial thought of cholecystitis. Since admission he's had a CT of his abdomen, ultrasound and HIDA scan. There is cholesterolosis on the ultrasound and the HIDA showed nonvisualization of the gallbladder at 4 hours and a suggestion of hepatocellular disease with retention in the liver. His liver enzymes have gone up mildly since admission and retracting that closely. GI's feeling is that this is more likely biliary dyskinesia and he may benefit from a cholecystectomy for the same. We have the surgical consult on board, we are fairly clear that this is not an acute cholecystitis given the lack of fever, white count or Yates's and this HIDA could be a false-positive because of the narcotics an nothing by mouth state. I explained to the patient all of this at length in the present of the nurse. I also explained that given the hefty dose of opiates that he is on already, I would rather stay away from opiates and advance his diet. Will need to follow- up how he does after he eats and based on his labs. of fever, white count or Yates's and this HIDA could be a false positive because of the narcotics and n.p.o. state. I explained to the patient all of this at length in the pleasant of the nurse. I also explained that given the hefty dose of opiates that he is on already I would rather stay away from opiates and advance his diet. Will need to follow-up how he does after he eats and based on his labs. GIs feeling is that this is more likely biliary dyskinesia His liver enzymes have gone up mildly since admission and rechecking that closely. Neurologically he is intact without any asterixis. Labs are pending. He is a 47-year-old with multiple psychiatric issues including anxiety depression and PTSD on multiple psych meds, chronic opiate dependence with MS Contin and oxycodone for chronic back pain. He was admitted with abdominal pain and initially thought of cholecystitis. Since admission he has had a CT of his abdomen, ultrasound and HIDA scan. There is coldest to roll the cysts on the ultrasound and a HIDA showed blood pressure is 112/72. He is awake alert and oriented, no icterus, lungs are clear to auscultation, heart is S1-S2 regular, abdomen he has some mild right upper quadrant tenderness without any Yates's and no rebound or guarding. No stigmata of chronic liver disease on physical exam, no clubbing cyanosis or edema andPatient seen and examined. He is eating his breakfast of eggs and toast. He says overall he feels okay, he tolerated his dinner but he continues to complain of this abdominal discomfort and pain and he required 1 dose of 1 mg of IV morphine. On exam he is afebrile at 97.6, pulse rate is 46, breathing at 16-18
--- NOTE | 2017-09-13 08:34 | PN- Housestaff ---
Subjective Follow-up For: RUQ pain Elevated Transaminases ?Cholecystitis Subjective: Patient was seen and examined today. Patient reports right upper quadrant abdominal pain that he rates and 10 out of 10 severity. Reports that the pain worsens with food. She denies any nausea/vomiting, fever/chills, chest pain, shortness of breath, diarrhea/constipation. No acute events overnight. Review of Systems Constitutional: Reports: see HPI. Objective Last 24 Hrs of Vital Signs/I&O Vital Signs Date Time Temp Pulse Resp B/P B/P Pulse O2 O2 Flow FiO2 Mean Ox Delivery Rate 09/13 0800 96 Room Air 09/13 0623 97.6 46 16 112/72 96 Room Air 09/12 2204 97.4 47 18 120/80 92 09/12 2121 108/60 09/12 1525 99.0 43 20 97 Intake & Output 09/13 1600 09/13 0800 09/13 0000 Intake Total 900 300 Output Total 300 Balance 600 300 Intake, IV 600 Intake, Oral 300 300 Output, Urine 300 Physical Exam General Appearance: Alert, Cooperative, No Acute Distress Skin Temp/Moisture Exam: Warm/Dry HEENT: Atraumatic, Mucous Membr. moist/pink Cardiovascular: Regular Rate, Normal S1, Normal S2 Lungs: Clear to Auscultation, Normal Air Movement Abdomen: Normal Bowel Sounds, Soft, tenderness to palpation of the RUQ, no rebound/guarding Extremities: No Clubbing, No Cyanosis, No Edema, Normal Pulses, No Tenderness/ Swelling Assessment/Plan Assessment: 47 year old male with PMH of anxiety/depression/PTSD, chronic pain (L5-S1 fusion ), hiatal hernia with diaphragmatic defect repair in 2017 presented with acute onset waxing and waning squeezing right upper quadrant abdominal pain, worse with eating. The patient describes the pain as squeezing and comes in 20-30 minute bouts. He denies any recent abnormal foods, travel, sick contacts. He does admit to increasing pain on eating. The patient is on high-dose opiates at home for his lower back pain, MS Contin, oxycodone. RUQ pain and mildly elevated transaminases: Patient continues to have RUQ pain, rates it a 10/10 with tenderness to palpation however is resting comfortably in bed and falling asleep during the interview. A CT Abd/Pelvis was done which showed some gallbladder wall thickening, no gallstone or biliary dilation but some tiny hyperdensities associated with the gallbladder wall. RUQ U/S No shadowing gallstones or significant mural thickening for acute cholecystitis. A HIDA scan was done which showed questionable cholecystits however likely false positive due to chronic narcotic use. Patient was evaluated by both GI and surgery. Spoke to Dr. Bosch (surgery) today and there is no indication at this time for surgery. Patient remains afebrile with no leukocytosis off antibiotics. Patient is tolerating oral intake. Patient's LFTs remain mildly elevated. He will be followed up outpatient with GI and surgery and have repeat LFTs on 08/19. No more narcotics will be prescribed as he has already been prescribed them recently. 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 RUQ abdominal pain 2. Elevated liver function tests Pain Ratin Pain Location: RUQ Pain Goal: Pain 7 or less Pain Plan: prn Tomorrow's Labs & Rationales: none - discharge home today, repeat LFTs next week with GI and surgery followup
[2017-09-13 08:53] LABS: ABSOLUTE BASOPHIL COUNT 0 /CUMM (0.0-0.2); ABSOLUTE EOSINOPHIL COUNT 0.2 /CUMM (0.0-0.7); ABSOLUTE LYMPH COUNT 1.9 /CUMM (1.2-3.4); ABSOLUTE MONOCYTE COUNT 0.4 /CUMM (0.10-0.60); BASOPHIL % 0.5 % (0.0-2.0); EOSINOPHIL % 4.2 % (0-5); GRANULOCYTE % 43.8 % (42.2-75.2); HEMATOCRIT 34.3 % (42-52); MEAN CORPUSCULAR HGB 30.4 PG (27.0-31.0); MEAN CORPUSCULAR HGB CONC 34.6 G/DL (33.0-37.0); MEAN CORPUSCULAR VOLUME 87.9 FL (80.0-94.0); MEAN PLATELET VOLUME 8.2 FL (7.4-10.4); PLATELET COUNT 199 /CUMM (130-400); RBC DISTRIBUTION WIDTH 13.5 % (11.5-14.5); RED BLOOD CELL CT 3.91 /CUMM (4.70-6.10); WHITE BLOOD CELL COUNT 4.5 /CUMM (4.8-10.8)
--- NOTE | 2017-09-13 12:55 | Cons- Cardiology ---
General Information and HPI Consulting Request Requested By: Miguel CLEVELAND,Debra Alfredo Allergies/Medications Allergies: Coded Allergies: NSAIDS (Non-Steroidal Anti-Inflamma (Intermediate, SWELLING EYE 09/11/17) ciprofloxacin (From CIPRO) (Intermediate, HIVES 09/11/17) Home Med List: Clonazepam 1 MG TABLET 1 TAB PO BID anxiety (Reported) Desvenlafaxine Succinate (Pristiq ER) 100 MG TAB.ER.24H 1 TAB PO QPM MENTAL HEALTH (Reported) Esomeprazole Magnesium (Nexium) 20 MG CAPSULE.DR 1 CAP PO QHS GI (Reported) Morphine Sulfate (Ms Contin) 15 MG TABLET.ER 1 TAB PO BID PAIN (Reported) Oxycodone HCl 10 MG TABLET 1 TAB PO Q6H PRN PAIN (Reported) Prazosin HCl (Minipress) 5 MG CAPSULE 1 CAP PO QPM PTSD/NIGHTMARES (Reported) Quetiapine Fumarate (Seroquel) 50 MG TABLET 1 TAB PO QPM MENTAL HEALTH ( Reported) Trazodone HCl 100 MG TABLET 1 TAB PO QPM SLEEP (Reported) Current Medications: Current Medications Sig/Fazal Start time Last Medication Dose Route Stop Time Status Admin Clonazepam 1 MG QPM 09/12 2099 AC 09/12 PO 09/19 2058 212 Clonazepam 1 MG BID 09/12 2099 AC 09/13 PO 09/19 2058 0809 Desvenlafaxine 100 MG AT BEDTIME 09/12 2099 AC 09/12 Succinate PO 2119 Morphine Sulfate 1 MG Q6-PRN PRN 09/13 0845 AC IV Morphine Sulfate 1 MG Q6-PRN PRN 09/13 0830 DC IV Morphine Sulfate 1 MG ONCE ONE 09/13 0130 DC 09/13 IV 09/13 0131 0127 Morphine Sulfate 15 MG BID 09/12 2100 AC 09/13 PO 0810 Morphine Sulfate 1 MG ONCE ONE 09/12 1800 DC 09/12 IV 09/12 1801 1838 Omeprazole 20 MG DAILY AC 09/12 0700 AC 09/13 PO 0550 Oxycodone HCl 10 MG Q6 PRN 09/12 1330 AC 09/13 PO 0627 Patient Medication 1 ED ONE ONE 09/12 1345 DC 09/12 Teaching ED 09/12 1346 1430 Prazosin HCl 5 MG QPM 09/12 2100 AC 09/12 PO 2121 Quetiapine Fumarate 50 MG QPM 09/12 2100 AC 09/12 PO 0 Sodium Chloride 1,000 ML Q13H 09/12 0200 DC 09/12 IV 09/13 8243 1537 Trazodone HCl 100 MG QPM 09/12 2100 AC 09/12 PO 0 Past History Travel History Traveled to [place] past 21 day No Medical History Blood Transfusion Hx: No Type of Reaction: Swelling Neurological: NONE EENT: NONE Cardiovascular: NONE Respiratory: ASTHMA? 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 Exam & Diagnostic Data Vital Signs and I&O Vital Signs Date Time Temp Pulse Resp B/P B/P Pulse O2 O2 Flow FiO2 Mean Ox Delivery Rate 09/13 08 96 Room Air 09/13 0623 97.6 46 16 112/72 96 Room Air 09/12 2204 97.4 47 18 120/80 92 09/12 2121 108/60 09/12 1525 99.0 43 20 97 Intake & Output 09/13 1600 09/13 0800 09/13 0000 09/12 1600 09/12 0800 09/12 0000 Intake Total 900 300 637.5 120 Output Total 300 250 600 Balance 600 300 387.5 -480 Intake, IV 600 637.5 Intake, Oral 300 300 0 120 Output, Urine 300 250 600 Patient 198 lb 196 lb Weight Weight Reported by Patient Measurement Method Labs/Abraham Results: Laboratory Tests 09/13 09/12 0740 1240 Chemistry Sodium (137 - 145 mmol/L) 141 Potassium (3.5 - 5.1 mmol/L) 3.8 Chloride (98 - 107 mmol/L) 106 Carbon Dioxide (22 - 30 mmol/L) 28 Anion Gap (5 - 16) 7 BUN (9 - 20 mg/dL) 11 Creatinine (0.7 - 1.2 mg/dL) 0.9 Estimated GFR (>60 ml/min) > 60 BUN/Creatinine Ratio (7 - 25 %) 12.2 Total Bilirubin (0.2 - 1.3 mg/dL) 0.6 Direct Bilirubin (< 0.4 mg/dL) 0.2 AST (17 - 59 U/L) 177 H ALT (21 - 72 U/L) 257 H Alkaline Phosphatase (< 127 U/L) 151 H Total Protein (6.3 - 8.2 g/dL) 5.7 L Albumin (3.5 - 5.0 g/dL) 3.2 L Coagulation PT (9.4 - 12.5 SEC) 12.4 INR (0.90 - 1.17) 1.14 APTT (25 - 37 SEC) 34 Hematology CBC w Diff NO MAN DIFF REQ WBC (4.8 - 10.8 /CUMM) 4.5 L RBC (4.70 - 6.10 /CUMM) 3.91 L Hgb (14.0 - 18.0 G/DL) 11.9 L Hct (42 - 52 %) 34.3 L MCV (80.0 - 94.0 FL) 87.9 MCH (27.0 - 31.0 PG) 30.4 MCHC (33.0 - 37.0 G/DL) 34.6 RDW (11.5 - 14.5 %) 13.5 Plt Count (130 - 400 /CUMM) 199 MPV (7.4 - 10.4 FL) 8.2 Gran % (42.2 - 75.2 %) 43.8 Lymphocytes % (20.5 - 51.1 %) 42.0 Monocytes % (1.7 - 9.3 %) 9.5 H Eosinophils % (0 - 5 %) 4.2 Basophils % (0.0 - 2.0 %) 0.5 Absolute Granulocytes (1.4 - 6.5 /CUMM) 2.0 Absolute Lymphocytes (1.2 - 3.4 /CUMM) 1.9 Absolute Monocytes (0.10 - 0.60 /CUMM) 0.4 Absolute Eosinophils (0.0 - 0.7 /CUMM) 0.2 Absolute Basophils (0.0 - 0.2 /CUMM) 0 09/12 09/12 0645 0150 Chemistry Sodium (137 - 145 mmol/L) 140 Potassium (3.5 - 5.1 mmol/L) 4.2 Chloride (98 - 107 mmol/L) 104 Carbon Dioxide (22 - 30 mmol/L) 30 Anion Gap (5 - 16) 6 BUN (9 - 20 mg/dL) 12 Creatinine (0.7 - 1.2 mg/dL) 1.0 Estimated GFR (>60 ml/min) > 60 BUN/Creatinine Ratio (7 - 25 %) 12.0 Total Bilirubin (0.2 - 1.3 mg/dL) 1.1 Direct Bilirubin (< 0.4 mg/dL) 0.5 H AST (17 - 59 U/L) 225 H ALT (21 - 72 U/L) 188 H Alkaline Phosphatase (< 127 U/L) 124 Creatine Kinase (55 - 170 U/L) 79 Troponin I (<0.11 ng/ml) < 0.01 < 0.01 Total Protein (6.3 - 8.2 g/dL) 5.7 L Albumin (3.5 - 5.0 g/dL) 3.2 L TSH (0.270 - 4.200 uIU/mL) 1.290 Free T4 (0.64 - 1.79 ng/dL) 1.46 Hematology CBC w Diff NO MAN DIFF REQ WBC (4.8 - 10.8 /CUMM) 5.4 RBC (4.70 - 6.10 /CUMM) 4.15 L Hgb (14.0 - 18.0 G/DL) 12.6 L Hct (42 - 52 %) 36.5 L MCV (80.0 - 94.0 FL) 88.1 MCH (27.0 - 31.0 PG) 30.3 MCHC (33.0 - 37.0 G/DL) 34.4 RDW (11.5 - 14.5 %) 13.2 Plt Count (130 - 400 /CUMM) 193 MPV (7.4 - 10.4 FL) 8.4 Gran % (42.2 - 75.2 %) 51.8 Lymphocytes % (20.5 - 51.1 %) 34.7 Monocytes % (1.7 - 9.3 %) 9.8 H Eosinophils % (0 - 5 %) 3.1 Basophils % (0.0 - 2.0 %) 0.6 Absolute Granulocytes (1.4 - 6.5 /CUMM) 2.8 Absolute Lymphocytes (1.2 - 3.4 /CUMM) 1.9 Absolute Monocytes (0.10 - 0.60 /CUMM) 0.5 Absolute Eosinophils (0.0 - 0.7 /CUMM) 0.2 Absolute Basophils (0.0 - 0.2 /CUMM) 0 09/11 Chemistry Sodium (137 - 145 mmol/L) 139 Potassium (3.5 - 5.1 mmol/L) 3.8 Chloride (98 - 107 mmol/L) 99 Carbon Dioxide (22 - 30 mmol/L) 30 Anion Gap (5 - 16) 10 BUN (9 - 20 mg/dL) 12 Creatinine (0.7 - 1.2 mg/dL) 1.0 Estimated GFR (>60 ml/min) > 60 BUN/Creatinine Ratio (7 - 25 %) 12.0 Glucose (65 - 99 mg/dL) 101 H Calcium (8.4 - 10.2 mg/dL) 8.9 Total Bilirubin (0.2 - 1.3 mg/dL) 0.8 AST (17 - 59 U/L) 126 H ALT (21 - 72 U/L) 93 H Alkaline Phosphatase (< 127 U/L) 109 Troponin I (<0.11 ng/ml) < 0.01 Total Protein (6.3 - 8.2 g/dL) 6.7 Albumin (3.5 - 5.0 g/dL) 4.0 Globulin (1.9 - 4.2 gm/dL) 2.7 Albumin/Globulin Ratio (1.1 - 2.2 %) 1.5 Lipase (23 - 300 U/L) 28 Hematology CBC w Diff NO MAN DIFF REQ WBC (4.8 - 10.8 /CUMM) 7.3 RBC (4.70 - 6.10 /CUMM) 4.35 L Hgb (14.0 - 18.0 G/DL) 13.1 L Hct (42 - 52 %) 37.8 L MCV (80.0 - 94.0 FL) 86.8 MCH (27.0 - 31.0 PG) 30.0 MCHC (33.0 - 37.0 G/DL) 34.6 RDW (11.5 - 14.5 %) 13.2 Plt Count (130 - 400 /CUMM) 239 MPV (7.4 - 10.4 FL) 7.4 Gran % (42.2 - 75.2 %) 65.1 Lymphocytes % (20.5 - 51.1 %) 24.1 Monocytes % (1.7 - 9.3 %) 8.8 Eosinophils % (0 - 5 %) 1.9 Basophils % (0.0 - 2.0 %) 0.1 Absolute Granulocytes (1.4 - 6.5 /CUMM) 4.8 Absolute Lymphocytes (1.2 - 3.4 /CUMM) 1.8 Absolute Monocytes (0.10 - 0.60 /CUMM) 0.6 Absolute Eosinophils (0.0 - 0.7 /CUMM) 0.1 Absolute Basophils (0.0 - 0.2 /CUMM) 0 Toxicology Urine Opiates Screen (>2000 NG/ML) > 4000.00 H Methadone Screen (>300 NG/ML) 48 Barbiturate Screen (>200 NG/ML) < 60 Ur Phencyclidine Scrn (>25 NG/ML) < 6.00 Amphetamines Screen (>1000 NG/ML) < 100 U Benzodiazepines Scrn (>200 NG/ML) 334 H Urine Cocaine Screen (>300 NG/ML) < 50 Urine Cannabis Screen (>50 NG/ML) < 5.00 Urines Urine Color (YEL,AMB,STR) YEL Urine Clarity (CLEAR) CLEAR Urine pH (5.0 - 8.0) 6.0 Ur Specific [place] (1.001 - 1.035) 1.025 Urine Protein (NEG,<30 MG/DL) NEG Urine Ketones (NEG) NEG Urine Nitrite (NEG) NEG Urine Bilirubin (NEG) NEG Urine Urobilinogen (0.1 - 1.0 EU/dl) 1.0 Ur Leukocyte Esterase (NEG) NEG Ur Microscopic EXAM NOT REQUIRED Urine Hemoglobin (NEG) NEG Urine Glucose (N MG/DL) NEG Assessment/Plan Consult Acknowledgment - Thank you for your consult request.
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
[2017-09-13 15:19] VITALS: BP 110/70
--- NOTE | 2017-09-13 16:59 | PN- General Surgery ---
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 I rev Vital Signs Date Time Temp Pulse Resp B/P B/P Pulse O2 O2 Flow FiO2 Mean Ox Delivery Rate 09/13 1626 96 Room Air 09/13 1519 98.1 47 18 110/70 97 09/13 0800 96 Room Air 09/13 0623 97.6 46 16 112/72 96 Room Air 09/12 2204 97.4 47 18 120/80 92 09/12 2121 108/60 I rev Intake & Output 09/13 1600 09/13 0800 09/13 0000 09/12 1600 09/12 0800 09/12 0000 Intake Total 950 900 300 637.5 120 Output Total 300 300 250 600 Balance 650 600 300 387.5 -480 Intake, IV 350 600 637.5 Intake, Oral 600 300 300 0 120 Number 0 Bowel Movements Output, Urine 300 300 250 600 Patient 198 lb 196 lb Weight Weight Reported by Patient Measurement Method Physical Exam: Constitutional: no acute distress no pain Eyes: sclera anicteric ENMT: moist mucous membranes Cardiovascular: S1-S2 no murmurs no peripheral edema Respiratory: clear to auscultation with normal respiratory effort and no intercostal retractions GI: abdomen soft less tender epigastric th yesterday nondistended Extremities / lymphatics: free range of motion no peripheral edema Skin: no jaundice no rashes warm, nondiaphoretic Psychiatric: mood and affect are appropriate and alert and oriented to person place and time Current Medications: I rev Current Medications Sig/Fazal Start time Last Medication Dose Route Stop Time Status Admin Clonazepam 1 MG QPM 09/12 2099 AC 09/12 PO 09/19 Clonazepam 1 MG BID 09/12 2099 AC 09/13 PO 09/19 2058 08 Desvenlafaxine 100 MG AT BEDTIME 09/12 2099 AC 09/12 Succinate PO 2119 Morphine Sulfate 1 MG Q6-PRN PRN 09/14 0745 AC IV Morphine Sulfate 1 MG Q6-PRN PRN 09/13 829 DC IV Morphine Sulfate 1 MG ONCE ONE 09/13 129 DC 09/13 IV 09/13 130 012 Morphine Sulfate 15 MG BID 09/12 2099 AC 09/13 PO 0810 Morphine Sulfate 1 MG ONCE ONE 09/12 1800 DC 09/12 IV 09/12 1801 1838 Nicotine 14 MG DAILY 09/13 1514 AC TOP Omeprazole 20 MG DAILY AC 09/12 0700 AC 09/13 PO 0550 Oxycodone HCl 10 MG Q6 PRN 09/12 1330 AC 09/13 PO 1456 Prazosin HCl 5 MG QPM 09/12 2100 AC 09/12 PO 2121 Quetiapine Fumarate 50 MG QPM 09/12 2100 AC 09/12 PO 2120 Sodium Chloride 1,000 ML Q13H 09/12 0200 DC 09/12 IV 09/13 0359 1537 Trazodone HCl 100 MG QPM 09/12 2100 AC 09/12 PO 2120 Results Last 48 Hours of Labs: I rev Laboratory Tests 09/13 09/12 0740 1240 Chemistry Sodium (137 - 145 mmol/L) 141 Potassium (3.5 - 5.1 mmol/L) 3.8 Chloride (98 - 107 mmol/L) 106 Carbon Dioxide (22 - 30 mmol/L) 28 Anion Gap (5 - 16) 7 BUN (9 - 20 mg/dL) 11 Creatinine (0.7 - 1.2 mg/dL) 0.9 Estimated GFR (>60 ml/min) > 60 BUN/Creatinine Ratio (7 - 25 %) 12.2 Total Bilirubin (0.2 - 1.3 mg/dL) 0.6 Direct Bilirubin (< 0.4 mg/dL) 0.2 AST (17 - 59 U/L) 177 H ALT (21 - 72 U/L) 257 H Alkaline Phosphatase (< 127 U/L) 151 H Total Protein (6.3 - 8.2 g/dL) 5.7 L Albumin (3.5 - 5.0 g/dL) 3.2 L Coagulation PT (9.4 - 12.5 SEC) 12.4 INR (0.90 - 1.17) 1.14 APTT (25 - 37 SEC) 34 Hematology CBC w Diff NO MAN DIFF REQ WBC (4.8 - 10.8 /CUMM) 4.5 L RBC (4.70 - 6.10 /CUMM) 3.91 L Hgb (14.0 - 18.0 G/DL) 11.9 L Hct (42 - 52 %) 34.3 L MCV (80.0 - 94.0 FL) 87.9 MCH (27.0 - 31.0 PG) 30.4 MCHC (33.0 - 37.0 G/DL) 34.6 RDW (11.5 - 14.5 %) 13.5 Plt Count (130 - 400 /CUMM) 199 MPV (7.4 - 10.4 FL) 8.2 Gran % (42.2 - 75.2 %) 43.8 Lymphocytes % (20.5 - 51.1 %) 42.0 Monocytes % (1.7 - 9.3 %) 9.5 H Eosinophils % (0 - 5 %) 4.2 Basophils % (0.0 - 2.0 %) 0.5 Absolute Granulocytes (1.4 - 6.5 /CUMM) 2.0 Absolute Lymphocytes (1.2 - 3.4 /CUMM) 1.9 Absolute Monocytes (0.10 - 0.60 /CUMM) 0.4 Absolute Eosinophils (0.0 - 0.7 /CUMM) 0.2 Absolute Basophils (0.0 - 0.2 /CUMM) 0 09/12 09/12 0645 0150 Chemistry Sodium (137 - 145 mmol/L) 140 Potassium (3.5 - 5.1 mmol/L) 4.2 Chloride (98 - 107 mmol/L) 104 Carbon Dioxide (22 - 30 mmol/L) 30 Anion Gap (5 - 16) 6 BUN (9 - 20 mg/dL) 12 Creatinine (0.7 - 1.2 mg/dL) 1.0 Estimated GFR (>60 ml/min) > 60 BUN/Creatinine Ratio (7 - 25 %) 12.0 Total Bilirubin (0.2 - 1.3 mg/dL) 1.1 Direct Bilirubin (< 0.4 mg/dL) 0.5 H AST (17 - 59 U/L) 225 H ALT (21 - 72 U/L) 188 H Alkaline Phosphatase (< 127 U/L) 124 Creatine Kinase (55 - 170 U/L) 79 Troponin I (<0.11 ng/ml) < 0.01 < 0.01 Total Protein (6.3 - 8.2 g/dL) 5.7 L Albumin (3.5 - 5.0 g/dL) 3.2 L TSH (0.270 - 4.200 uIU/mL) 1.290 Free T4 (0.64 - 1.79 ng/dL) 1.46 Hematology CBC w Diff NO MAN DIFF REQ WBC (4.8 - 10.8 /CUMM) 5.4 RBC (4.70 - 6.10 /CUMM) 4.15 L Hgb (14.0 - 18.0 G/DL) 12.6 L Hct (42 - 52 %) 36.5 L MCV (80.0 - 94.0 FL) 88.1 MCH (27.0 - 31.0 PG) 30.3 MCHC (33.0 - 37.0 G/DL) 34.4 RDW (11.5 - 14.5 %) 13.2 Plt Count (130 - 400 /CUMM) 193 MPV (7.4 - 10.4 FL) 8.4 Gran % (42.2 - 75.2 %) 51.8 Lymphocytes % (20.5 - 51.1 %) 34.7 Monocytes % (1.7 - 9.3 %) 9.8 H Eosinophils % (0 - 5 %) 3.1 Basophils % (0.0 - 2.0 %) 0.6 Absolute Granulocytes (1.4 - 6.5 /CUMM) 2.8 Absolute Lymphocytes (1.2 - 3.4 /CUMM) 1.9 Absolute Monocytes (0.10 - 0.60 /CUMM) 0.5 Absolute Eosinophils (0.0 - 0.7 /CUMM) 0.2 Absolute Basophils (0.0 - 0.2 /CUMM) 0 09/11 Chemistry Sodium (137 - 145 mmol/L) 139 Potassium (3.5 - 5.1 mmol/L) 3.8 Chloride (98 - 107 mmol/L) 99 Carbon Dioxide (22 - 30 mmol/L) 30 Anion Gap (5 - 16) 10 BUN (9 - 20 mg/dL) 12 Creatinine (0.7 - 1.2 mg/dL) 1.0 Estimated GFR (>60 ml/min) > 60 BUN/Creatinine Ratio (7 - 25 %) 12.0 Glucose (65 - 99 mg/dL) 101 H Calcium (8.4 - 10.2 mg/dL) 8.9 Total Bilirubin (0.2 - 1.3 mg/dL) 0.8 AST (17 - 59 U/L) 126 H ALT (21 - 72 U/L) 93 H Alkaline Phosphatase (< 127 U/L) 109 Troponin I (<0.11 ng/ml) < 0.01 Total Protein (6.3 - 8.2 g/dL) 6.7 Albumin (3.5 - 5.0 g/dL) 4.0 Globulin (1.9 - 4.2 gm/dL) 2.7 Albumin/Globulin Ratio (1.1 - 2.2 %) 1.5 Lipase (23 - 300 U/L) 28 Hematology CBC w Diff NO MAN DIFF REQ WBC (4.8 - 10.8 /CUMM) 7.3 RBC (4.70 - 6.10 /CUMM) 4.35 L Hgb (14.0 - 18.0 G/DL) 13.1 L Hct (42 - 52 %) 37.8 L MCV (80.0 - 94.0 FL) 86.8 MCH (27.0 - 31.0 PG) 30.0 MCHC (33.0 - 37.0 G/DL) 34.6 RDW (11.5 - 14.5 %) 13.2 Plt Count (130 - 400 /CUMM) 239 MPV (7.4 - 10.4 FL) 7.4 Gran % (42.2 - 75.2 %) 65.1 Lymphocytes % (20.5 - 51.1 %) 24.1 Monocytes % (1.7 - 9.3 %) 8.8 Eosinophils % (0 - 5 %) 1.9 Basophils % (0.0 - 2.0 %) 0.1 Absolute Granulocytes (1.4 - 6.5 /CUMM) 4.8 Absolute Lymphocytes (1.2 - 3.4 /CUMM) 1.8 Absolute Monocytes (0.10 - 0.60 /CUMM) 0.6 Absolute Eosinophils (0.0 - 0.7 /CUMM) 0.1 Absolute Basophils (0.0 - 0.2 /CUMM) 0 Toxicology Urine Opiates Screen (>2000 NG/ML) > 4000.00 H Methadone Screen (>300 NG/ML) 48 Barbiturate Screen (>200 NG/ML) < 60 Ur Phencyclidine Scrn (>25 NG/ML) < 6.00 Amphetamines Screen (>1000 NG/ML) < 100 U Benzodiazepines Scrn (>200 NG/ML) 334 H Urine Cocaine Screen (>300 NG/ML) < 50 Urine Cannabis Screen (>50 NG/ML) < 5.00 Urines Urine Color (YEL,AMB,STR) YEL Urine Clarity (CLEAR) CLEAR Urine pH (5.0 - 8.0) 6.0 Ur Specific [place] (1.001 - 1.035) 1.025 Urine Protein (NEG,<30 MG/DL) NEG Urine Ketones (NEG) NEG Urine Nitrite (NEG) NEG Urine Bilirubin (NEG) NEG Urine Urobilinogen (0.1 - 1.0 EU/dl) 1.0 Ur Leukocyte Esterase (NEG) NEG Ur Microscopic EXAM NOT REQUIRED Urine Hemoglobin (NEG) NEG Urine Glucose (N MG/DL) NEG Assessment/Plan Assessment/Plan abd pain improved, tolerating diet, LFTs some better some not but no signif jumps, WBC not increased, no shift. Bloated feeling may be rel to narcotics, no BM yet No ac cholecystitis that needs urgent surgery, still would trend labs, as outpt The analgesic amount confounds the picture. If worsens would reimage Problem List: 1. RUQ abdominal pain 2. Elevated liver function tests
== END 2017-09-13 17:15 ==
LOC: ERH 19:15 → ERHI 22:10 → 2NA 22:10 → ENRESERV 23:51 → 2NA 09-12 00:22 → ENPENDDIS 09-13 15:32 → 2NA 09-13 17:15
PROVIDERS: Emergency Medicine; Internal Medicine
DX: K82.4 Cholesterolosis of gallbladder (principal); R79.89 Other specified abnormal findings of blood chemistry; R00.1 Bradycardia, unspecified; F41.9 Anxiety disorder, unspecified; F32.9 Major depressive disorder, single episode, unspecified; F43.10 Post-traumatic stress disorder, unspecified; G89.29 Other chronic pain; F17.200 Nicotine dependence, unspecified, uncomplicated; R74.0 Nonspecific elevation of levels of transaminase and lactic acid dehydrogenase [LDH]; F11.20 Opioid dependence, uncomplicated
CPT/HCPCS: 36415; 36592; 74177; 78226; 80307; 81003; 82436; 87040; 93005; 93010; 96374; 96375; 96376; A9537; G0378; J1200; J1644; J1885; J2270; J2405